=== PATIENT | female | born 1930 | race Caucasian/White ===

== ENCOUNTER → 2017-01-28 | Emergency (ER) | payer OTHER, BC ==
[~2017-01-28] MED LIST: ACETAMINOPHEN 325 MG TABLET (FP) ONE; ACETAMINOPHEN 325 MG TABLET (FP) PO ONE
[2017-01-28 17:17] VITALS: BMI 28.3
--- NOTE | 2017-01-28 17:41 | PDOC ---
History of Present Illness - History of Present Illness Initial Comments: 01/28/17 18:12 The patient is a 86 year old female, with a significant past medical history of Afib (on xarelto), hypertension, and arthritis, who presents to the emergency department brought in by ambulance with pain to her right shoulder and neck s/p mechanical fall today. She states she was putting away ice cream in her kitchen with her daughter when she tripped over her foot and fell onto her right side. She denies hitting her head or losing consciousness. The patient reports the the pain on the right side of her neck is worse than the left but states she has always had some degree of pain to her neck and shoulder due to her arthritis. The patient reports she walks with a rollator at baseline for unsteady gait. She denies any new troubles walking or bearing weight. She denies chest pain, shortness of breath, headache and dizziness. She denies fever, chills, nausea, vomit, diarrhea and constipation. She denies dysuria, frequency, urgency and hematuria. Allergies: penicillins and sulfa drugs <Luh Del Angel - Last Filed: 01/28/17 20:14> <Dee Rojas - Last Filed: 01/28/17 21:14> - General Chief Complaint: Injury Stated Complaint: FALL Time Seen by Provider: 01/28/17 17:12 Past History <Luh Del Angel - Last Filed: 01/28/17 20:14> - Past Medical History Cardiac Disorders: Yes HTN: Yes HIV: Yes - Surgical History Cardiac Surgery: Yes (bypass x 2) - Psycho/Social/Smoking Cessation Hx Anxiety: No Suicidal Ideation: No Smoking History: Never smoked Have you smoked in the past 12 months: No Information on smoking cessation initiated: No Hx Alcohol Use: No Drug/Substance Use Hx: No Substance Use Type: None <Dee Rojas - Last Filed: 01/28/17 21:14> - Past Medical History Allergies/Adverse Reactions: Allergies Allergy/AdvReac Type Severity Reaction Status Date / Time Penicillins Allergy Verified 01/28/17 17:18 Sulfa (Sulfonamide Allergy Verified 01/28/17 17:18 Antibiotics) Home Medications: Ambulatory Orders Amlodipine Besylate [Norvasc -] 5 mg PO DAILY 01/28/17 Brimonidine Tartrate/Timolol [Combigan Eye Drops] 1 drop OU BID 01/28/17 Metoprolol Succinate [Toprol Xl] 0 mg PO DAILY 01/28/17 Pantoprazole Sodium [Protonix] 40 mg PO DAILY 01/28/17 Rivaroxaban [Xarelto -] 15 mg PO DAILY 01/28/17 Valsartan [Diovan] 160 mg PO DAILY 01/28/17 Review of Systems - Review of Systems Able to Perform ROS?: Yes Comments:: 01/28/17 18:12 CONSTITUTIONAL: Absent: fever, chills, diaphoresis, generalized weakness, malaise, loss of appetite HEENT: Absent: rhinorrhea, nasal congestion, throat pain, throat swelling, difficulty swallowing, mouth swelling, ear pain, eye pain, visual Changes CARDIOVASCULAR: Absent: chest pain, syncope, palpitations, irregular heart rate, lightheadedness , peripheral edema RESPIRATORY: Absent: cough, shortness of breath, dyspnea with exertion, orthopnea, wheezing, stridor, hemoptysis GASTROINTESTINAL: Absent: abdominal pain, abdominal distension, nausea, vomiting, diarrhea, constipation, melena, hematochezia GENITOURINARY: Absent: dysuria, frequency, urgency, hesitancy, hematuria, flank pain, genital pain MUSCULOSKELETAL: (+) right shoulder and bilateral neck pain. Absent: joint swelling SKIN: Absent: rash, itching, pallor HEMATOLOGIC/IMMUNOLOGIC: Absent: easy bleeding, easy bruising, lymphadenopathy, frequent infections ENDOCRINE: Absent: unexplained weight gain, unexplained weight loss, heat intolerance, cold intolerance NEUROLOGIC: Absent: headache, focal weakness or paresthesias, dizziness, unsteady gait, seizure, mental status changes, bladder or bowel incontinence PSYCHIATRIC: Absent: anxiety, depression, suicidal or homicidal ideation, hallucinations. <Luh Del Angel - Last Filed: 01/28/17 20:14> *Physical Exam - Vital Signs Last Vital Signs Temp Pulse Resp BP Pulse Ox 97.5 F L 70 18 179/62 100 01/28/17 16:51 01/28/17 16:51 01/28/17 16:51 01/28/17 16:51 01/28/17 16:51 - Physical Exam Comments: 01/28/17 18:14 GENERAL: Well developed, well nourished. Awake and alert. No acute distress. HEENT: Normocephalic, atraumatic. PERRLA, EOMI. No conjunctival pallor. Sclera are non- icteric. Moist mucous membranes. Oropharynx is clear. NECK: Supple. Full ROM. No JVD. Carotid pulses 2+ and symmetric, without bruits. No thyromegaly. No lymphadenopathy. CARDIOVASCULAR: Regular rate and rhythm. No murmurs, rubs, or gallops. Distal pulses are 2+ and symmetric. PULMONARY: No evidence of respiratory distress. Lungs clear to auscultation bilaterally. No wheezing, rales or rhonchi. ABDOMINAL: Soft. Non-tender. Non-distended. No rebound or guarding. No organomegaly. Normoactive bowel sounds. MUSCULOSKELETAL (+) mild ttp starting at right C3. paraspinal and trapezius mildly ttp. Normal range of motion at all joints. No bony deformities. No CVA tenderness. EXTREMITIES: No cyanosis. No clubbing. No edema. No calf tenderness. SKIN: Warm and dry. Normal capillary refill. No rashes. No jaundice. NEUROLOGICAL: Alert, awake, appropriate. Cranial nerves 2-12 intact. Normoreflexic in the upper and lower extremities. Normal speech. Toes are down-going bilaterally. Gait is normal without ataxia. PSYCHIATRIC: Cooperative. Good eye contact. Appropriate mood and affect. <Luh Del Angel - Last Filed: 01/28/17 20:14> - Vital Signs Last Vital Signs Temp Pulse Resp BP Pulse Ox 97.5 F L 70 18 179/62 100 01/28/17 16:51 01/28/17 16:51 01/28/17 16:51 01/28/17 16:51 01/28/17 16:51 <Dee Rojas - Last Filed: 01/28/17 21:14> ED Treatment Course - RADIOLOGY Radiograph Interpretation: 01/28/17 19:50 EXAM: CT cervical spine noncontrast was read by Manpreet Dawson MD at 19 :45 EST IMAGES: 330 EXAM DATE AND TIME: 2017-01-28 18:20:14.0 REASON FOR EXAM: Fall FINDINGS: There is a type II fracture of the odontoid body with mild diastases anteriorly measuring approximately 2 mm although without significant displacement. This is best appreciated on sagittal reformatted images There are no additional fractures visualized There are moderate to severe multilevel degenerative changes Grade 1 anterolisthesis of C3 on C4, C4 on C5, C7 on T1, T1 -T2 and T2 on T3, likely chronic degenerative The prevertebral soft tissues are within normal limits The visualized upper lungs are clear EXAM: CT head noncontrast was read by Manpreet Dawson MD at 19:38 EST FINDINGS: There is no intra or extra-axial hemorrhage or collection. No mass lesion or midline shift. There is mild cortical atrophy. The ventricles are not enlarged Normal mann-white matter differentiation. Areas of decreased attenuation in the periventricular and deep white matter compatible with chronic microvascular ischemic changes. The calvarium is intact. The visualized paranasal sinuses and mastoid air cells are clear. - Medications Given in the ED: ED Medications Discontinued Medications Generic Name Dose Route Start Last Admin Trade Name Freq PRN Reason Stop Dose Admin Acetaminophen 650 mg 01/28/17 17:47 01/28/17 17:57 Tylenol - PO 01/28/17 17:48 650 mg ONCE ONE Administration <Luh Del Angel - Last Filed: 01/28/17 20:14> Medical Decision Making - Critical Care Time Total Critical Care Time (minutes): 60 Critical Care Statement: The care of this patient involved high complexity decision making to prevent further life threatening deterioration of the patient 's condition and/or to evalute & treat vital organ system(s) failure or risk of failure. - Medical Decision Making 01/28/17 20:19 c collar was placed on patient when she arrived 01/28/17 20:23 86 yo female brought in from home after having a mechanical fall in her kitchen. Her daughter was present. Pt has c/o neck pain -pt is axox3,moving all extremities,good hand grasp 5/5 bilaterally -she denies headache,nausea,vomiting PMH atrial fib,HTN PSH TL, cholecystectomy, b/l hip replacement 01/28/17 21:10 ct scan of head NEGATIVE fore any acute intracranial pathology ct scan of cervical spine POSITIVE for TYPE II DENS FRACTURE ,nondisplaced Called [facility] and spoke with neurosurgeon DR ORTIZ who accepted the case -case discussed with the patient and her daughter. -They agreed to TRANSFER for higher level of care (no neurosurgery available tonight at our hospital) -the patient signed the transfer chart <Dee Rojas - Last Filed: 01/28/17 21:14> *DC/Admit/Observation/Transfer - Attestations Scribe Attestion: 01/28/17 18:15 Documentation prepared by Luh Del Angel, acting as medical transcriber for Dee Rojas MD <Luh Del Angel - Last Filed: 01/28/17 20:14> - Transfer to Acute Care Facility Receiving Facility: [facility]. Accepting Physician:: DR ORTIZ neurosurgery <Dee Rojas - Last Filed: 01/28/17 21:14> Diagnosis at time of Disposition: Dens fracture Qualifiers: Encounter type: initial encounter Fracture type: closed Qualified Code(s): S12.100A - Unspecified displaced fracture of second cervical vertebra, initial encounter for closed fracture Fall Qualifiers: Encounter type: initial encounter Qualified Code(s): W19.XXXA - Unspecified fall, initial encounter - Discharge Dispostion Disposition: TRANSFER ACUTE CARE/OTHER HOSP - Referrals Referrals: Micky Miller [Primary Care Provider] -
[2017-01-28 20:55] VITALS: BP 160/78; PULSE 73; TEMP 98.3
== END | disposition short-term general hospital (02) ==
LOC: JER 16:51
DX: S12.121A Other nondisplaced dens fracture, initial encounter for closed fracture (principal); I48.91 Unspecified atrial fibrillation; Z79.01 Long term (current) use of anticoagulants; I10 Essential (primary) hypertension; M12.9 Arthropathy, unspecified; Z21 Asymptomatic human immunodeficiency virus [HIV] infection status; Z95.1 Presence of aortocoronary bypass graft; W01.0XXA Fall on same level from slipping, tripping and stumbling without subsequent striking against object, initial encounter; Y93.89 Activity, other specified; Y92.030 Kitchen in apartment as the place of occurrence of the external cause
CPT/HCPCS: 70450-TC; 72125-TC; 99285-25

== ENCOUNTER 2018-08-13 14:25 | Inpatient (IN) | payer OTHER, BC ==
--- NOTE | 2018-08-13 15:12 | PDOC ---
History of Present Illness - General Chief Complaint: Injury Stated Complaint: FALL/HEAD INJURY Time Seen by Provider: 08/13/18 14:39 History Source: Patient Exam Limitations: No Limitations - History of Present Illness Initial Comments: 08/13/18 15:23 87-year-old female sent over from status post fall. Patient states was trying to get comfortable in the chair when she fell forward striking her forehead on the tiled floor. Patient states had no LOC had no complaints of dizziness or visual changes on the incident. Patient is currently on zaralto, has a defibrillator, and history of hypertension. As per daughter patient has irritation and mild breakdown to her buttocks which causes her to frequently move her position and fell approximately 3 weeks ago secondary to the same requiring her to go to the ER to [facility]. Occurred: reports: just prior to arrival Severity: reports: mild Pain Location: reports: head Method of Injury: Yes: fall Modifying Factors: improves with: None Loss of Consciousness: no loss of consciousness Associated Symptoms (Fall): denies symptoms Past History - Travel Traveled outside of the country in the last 30 days: No - Past Medical History Allergies/Adverse Reactions: Allergies Allergy/AdvReac Type Severity Reaction Status Date / Time strawberry Allergy Severe Hives Verified 08/14/18 14:16 Penicillins Allergy Verified 08/13/18 14:31 Sulfa (Sulfonamide Allergy Verified 08/13/18 14:31 Antibiotics) nut - unspecified AdvReac Severe Difficulty Unverified 08/16/18 11:05 Breathing Home Medications: Ambulatory Orders Furosemide [Lasix] 20 mg PO DAILY 08/13/18 Rivaroxaban [Xarelto -] 20 mg PO DAILY 08/13/18 Valsartan 320 mg PO DAILY 08/13/18 Brimonidine Tartrate/Timolol [Combigan Eye Drops] 5 ml OD BID 08/14/18 Pantoprazole Sodium [Protonix -] 20 mg PO DAILY 08/14/18 Tobramycin Sulf/Dexamethasone [Tobradex] 1 - 2 drop TID 08/14/18 Cardiac Disorders: Yes COPD: No HTN: Yes - Surgical History Cardiac Surgery: Yes (bypass x 2) - Suicide/Smoking/Psychosocial Hx Smoking History: Never smoked Have you smoked in the past 12 months: No Hx Alcohol Use: No Drug/Substance Use Hx: No Substance Use Type: None Patient Lives Alone: No Review of Systems - Review of Systems Able to Perform ROS?: No Constitutional: No: Symptoms Reported HEENTM: No: Symptoms Reported : No: Symptoms Reported Musculoskeletal: No: Symptoms Reported Integumentary: Yes: Bruising, Erythema, Lumps Neurological: No: Symptoms reported, Headache, Dizziness Endocrine: No: Symptoms Reported Hematologic/Lymphatic: Yes: See HPI *Physical Exam - Vital Signs Last Vital Signs Temp Pulse Resp BP Pulse Ox 97.3 F L 80 18 123/79 99 08/13/18 14:31 08/13/18 14:31 08/13/18 14:31 08/13/18 14:31 08/13/18 14:31 - Physical Exam General Appearance: Yes: Nourished, Appropriately Dressed. No: Apparent Distress HEENT: positive: EOMI, JOHN, Pharynx Normal (dry) Neck: positive: Normal Thyroid, Supple. negative: Tender, Decreased range of motion Respiratory/Chest: positive: Lungs Clear, Normal Breath Sounds. negative: Respiratory Distress, Accessory Muscle Use Cardiovascular: positive: Regular Rhythm, Regular Rate. negative: Murmur Gastrointestinal/Abdominal: positive: Soft. negative: Tenderness Extremity: positive: Normal Capillary Refill. negative: Pedal Edema Integumentary: positive: Normal Color, Dry, Warm, Swelling (to upper midforehead ), Ecchymosis (4 cm soft hematoma to parietal area) Neurologic: positive: Motor Strength 5/5 (moving all extremeties actively, FROM noted) Heart Score/ECG Review - ECG Intrepretation Rhythm: Regular Rhythm (rate 60, ventrically paced) ED Treatment Course - LABORATORY CBC & Chemistry Diagram: 08/17/18 07:15 08/16/18 07:30 - RADIOLOGY Radiology Studies Ordered: Category Date Time Status CERVICAL SPINE CT W/O CONTR [CT] Stat CT Scan 08/13/18 14:[address] WITHOUT CONTRAST [CT] Stat CT Scan 08/13/18 14:39 Ordered Medical Decision Making - Medical Decision Making 08/13/18 15:51 Patient status post mechanical fall now with ecchymotic hematoma to mid upper for head. Patient on zaralto. Patient ordered for labs, EKG, urine head and neck CT. 08/13/18 16:14 Laboratory Tests 08/13/18 15:15 PT with INR 16.20 H INR 1.43 H Laboratory Tests 08/13/18 15:15 WBC 8.1 Hgb 14.9 Hct 45.5 H RDW 24.4 H Plt Count 132 L Neutrophils % 72.9 08/13/18 17:[address] negative for acute intracranial pathology. Patient ordered for tetanus since she has not had one in over 6 years. Chemistry pending. Patient was ordered for 500 mL of normal saline since she appears dry and exam and daughter states patient has had decreased fluid intake for the past 2 weeks secondary to recommendations of her primary care doctor due to hyponatremia 08/13/18 17:59 Case discussed with family and understands patient will be admitted for observation with a repeat head CT in the morning 08/13/18 18:18 CT of the cervical spine shows a type II odontoid fracture with minimal to mild posterior displacement. It is uncertain whether this fracture is acute or chronic in nature on the basis of this exam. As per daughter, the patient has had 2 falls prior to today in the past 6 weeks. Patient was placed in cervical collar. 08/13/18 18:19 Laboratory Tests 08/13/18 16:50 Sodium 125 L Potassium 4.8 Chloride 93 L Carbon Dioxide 21 Anion Gap 11 BUN 29 H Creatinine 0.9 Creat Clearance w eGFR 59.37 Random Glucose 108 H Calcium 8.5 Total Bilirubin 1.5 H AST 46 H ALT 41 Alkaline Phosphatase 72 Total Protein 5.9 L Albumin 3.2 L *DC/Admit/Observation/Transfer Diagnosis at time of Disposition: Closed head injury, Anticoagulated, Odontoid fracture, Hyponatremia - Discharge Dispostion Decision to Admit order: Yes - Referrals - Patient Instructions - Post Discharge Activity
[2018-08-13 15:46] LABS: BASO % 0.7 % (0-2.0); EOS % 0.5 % (0-4.5); HEMATOCRIT 45.5 % (32.4-45.2); HEMOGLOBIN 14.9 GM/dL (10.7-15.3); MCH 29.7 pg (25.7-33.7); MCHC 32.7 g/dl (32.0-36.0); MEAN CELL VOLUME 90.7 fl (80-96); MEAN PLT VOLUME 8.4 fl (7.5-11.1); MONO % 8.9 % (3.8-10.2); NEUT % 72.9 % (42.8-82.8); PLATELET COUNT 132 K/MM3 (134-434); RBC 5.01 M/mm3 (3.60-5.2); RDW 24.4 % (11.6-15.6); WHITE BLOOD COUNT 8.1 K/mm3 (4.0-10.0)
[2018-08-13 15:49] LABS: INR 1.43 (0.83-1.09); PROTHROMBIN TIME (PATIENT) 16.2 SEC (9.7-13.0)
[2018-08-13] MEDS ORDERED: DIPHTH,PERTUSS(ACELL),TET 0.5 ML DISP.SYRIN IM ONE (17:47)
[2018-08-13] MEDS ORDERED: SODIUM CHLORIDE 500 ML IV STA (17:48)
[2018-08-13 17:56] LABS: ALBUMIN 3.2 g/dl (3.4-5.0); ANION GAP 11 MMOL/L (8-16); BILIRUBIN,TOTAL 1.5 mg/dL (0.2-1); BLOOD UREA NITROGEN 29 mg/dL (7-18); CALCIUM 8.5 mg/dL (8.5-10.1); CHLORIDE 93 mmol/L (98-107); CO2 21 mmol/L (21-32); CREATININE 0.9 mg/dL (0.55-1.3); GLUCOSE,RANDOM 108 mg/dL (74-106); SGPT/ALT 41 U/L (13-61); SODIUM 125 mmol/L (136-145); TOT PROT 5.9 g/dl (6.4-8.2)
[2018-08-13 17:57] LABS: ALK PHOS 72 U/L (45-117)
[2018-08-13 18:00] LABS: POTASSIUM 4.8 mmol/L (3.5-5.1); SGOT/AST 46 U/L (15-37)
--- NOTE | 2018-08-13 19:23 | HP ---
CHIEF COMPLAINT: Fall PCP: Dr. Miller Manager Diabetes: Dr. Asad De Los Santos HISTORY OF PRESENT ILLNESS: Patient is an 87 year old female with a PMHx of HTN, Atrial Fibrillation (On Xarelto), glaucoma, hyponatremia, herpes opthalmicus, CAD S/P 2 vessel bypass and AICD/Pacemaker placement (April 2018) who presented today s/p mechanical fall. According to patient, she was sitting in her chair adjusting herself and then she suddenly fell to the ground, hitting the front of her head. Reports it happened in the morning, however, her kids report she fell this afternoon and her aid came into the room within 30 minutes and found her on the floor, which prompted her to call EMS. Patient states she remembered the whole event and denies any loss of consciousness, shortness of breath, chest pain, palpitations , dizziness before, during, or after the fall. According to her son, who is a physician (hospitalist) at [employer], patient has fallen three times in the last 6 weeks and has had an 8 pound weight loss in the last 4 weeks due to poor oral intake and loss of appetite. Patiently recently had AICD and pacemaker placed April 2018 after she was found to have an EF <25% and since then her son reports she's had decreased mental acuity, worsening gait, with loss of appetite and anorexia. They also report that patient has irritation when sitting down due to breakdowns of the buttock area from wearing diapers and sitting for long periods of time. Otherwise, patient denies any fever, chills, nausea, vomiting, abdominal pain, chest pain, palpitations, shortness of breath, acute vision changes, headaches, dizziness, lightheadedness, loss of consciousness. ER course was notable for: (1) Head CT (2) Cervical CT (3) Recent Travel: Denies PAST MEDICAL HISTORY: HTN, Atrial Fibrillation (On Xarelto), glaucoma, hyponatremia, herpes opthalmicus, CAD S/P 2 vessel bypass and AICD/Pacemaker placement (April 2018) PAST SURGICAL HISTORY: 2 vessel bypass (1998), AICD/Pacemaker (April 2018), Left hip placement (1989), Cholecystectomy Social History: Lives alone and has an aid. 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 Smoking:Denies Alcohol: Denies Drugs: Denies Allergies Penicillins Allergy (Verified 08/13/18 14:31) HIVES Sulfa (Sulfonamide Antibiotics) Allergy (Verified 08/13/18 14:31) HIVES HOME MEDICATIONS: Home Medications Medication Instructions Recorded Amlodipine Besylate [Norvasc -] 5 mg PO DAILY 01/28/17 Brimonidine Tartrate/Timolol 1 drop OU BID 01/28/17 [Combigan Eye Drops] Metoprolol Succinate [Toprol Xl] 0 mg PO DAILY 01/28/17 Pantoprazole Sodium [Protonix] 40 mg PO DAILY 01/28/17 Rivaroxaban [Xarelto -] 15 mg PO DAILY 01/28/17 Valsartan [Diovan] 160 mg PO DAILY 01/28/17 REVIEW OF SYSTEMS CONSTITUTIONAL: Absent: fever, chills, diaphoresis, generalized weakness, malaise, loss of appetite, weight change HEENT: Absent: rhinorrhea, nasal congestion, throat pain, throat swelling, difficulty swallowing, mouth swelling, ear pain, eye pain, visual changes CARDIOVASCULAR: Absent: chest pain, syncope, palpitations, irregular heart rate, lightheadedness , peripheral edema RESPIRATORY: Absent: cough, shortness of breath, dyspnea with exertion, orthopnea, wheezing, stridor, hemoptysis GASTROINTESTINAL: Absent: abdominal pain, abdominal distension, nausea, vomiting, diarrhea, constipation, melena, hematochezia GENITOURINARY: Absent: dysuria, frequency, urgency, hesitancy, hematuria, flank pain, genital pain MUSCULOSKELETAL: Absent: myalgia, arthralgia, joint swelling, back pain, neck pain SKIN: Absent: rash, itching, pallor HEMATOLOGIC/IMMUNOLOGIC: Absent: easy bleeding, easy bruising, lymphadenopathy, frequent infections ENDOCRINE: Absent: unexplained weight gain, unexplained weight loss, heat intolerance, cold intolerance NEUROLOGIC: Frequent falls Absent: headache, focal weakness or paresthesias, dizziness, unsteady gait, seizure, mental status changes, bladder or bowel incontinence PSYCHIATRIC: Absent: anxiety, depression, suicidal or homicidal ideation, hallucinations. PHYSICAL EXAMINATION Vital Signs - 24 hr 08/13/18 14:31 Temperature 97.3 F L Pulse Rate 80 Respiratory 18 Rate Blood Pressure 123/79 O2 Sat by Pulse 99 Oximetry (%) GENERAL: Awake, alert, and fully oriented, in no acute distress. HEAD: 4cm hematoma in the parietal region with an abrasion of the mid forehead, EYES: Pupils equal, round and reactive to light, extraocular movements intact, sclera anicteric, conjunctiva clear. No lid lag. (-) [place] eyes EARS, NOSE, THROAT: Oropharynx clear without exudates. Dry mucous membranes. (- ) battles sign , no hemotympanum NECK: Able to move neck right and left without pain or tenderness, (-) lymphadenopathy, JVD, or masses. LUNGS: Breath sounds equal, clear to auscultation bilaterally. No wheezes, and no crackles. No accessory muscle use. HEART: Regular rate and rhythm, 2/6 lukasz murmur ABDOMEN: Soft, nontender, not distended, normoactive bowel sounds, no guarding, no rebound, no masses. MUSCULOSKELETAL: Normal range of motion at all joints. No bony deformities or tenderness. No CVA tenderness. UPPER EXTREMITIES: No peripheral edema. LOWER EXTREMITIES: 2+ pitting edema bilaterally BUTTOCK: Skin break down with multiple closed ulcerations/lesions with no drainage NEUROLOGICAL: Cranial nerves II-XII intact. Normal speech. Motor strength 5/5 bilaterally with sensory intact PSYCHIATRIC: Cooperative. Good eye contact. Appropriate mood and affect. Laboratory Results - last 24 hr CBC, BMP 08/13/18 20:24 08/13/18 16:50 08/13/18 08/13/18 08/13/18 15:15 16:50 16:50 INR 1.43 H Total Bilirubin 1.5 H AST 46 H ALT 41 Alkaline Phosphatase 72 Creatine Kinase 67 Total Protein 5.9 L Albumin 3.2 L IMAGES: Head CT (08/13/18): No Acute pathology Cervical CT (08/13/18): In comparison to a 2017 CT study interval development of a type II odontoid fracture is noted with minimal to mild posterior displacement. It is uncertain whether this fracture is acute or chronic in nature on the basis of this exam. ASSESSMENT/PLAN: Patient is an 87 year old female who presented for S/P mechanical fall on Xarelto. Patient found to have hyponatremia and admitted for further monitoring and management. S/P Mechanical Fall on Xarelto -Possibly from hyponatremia and CHF causing her usteady gait -Head CT negative. Will repeat one in the morning -Hold Xarelto for now -Will order U/A -Fall Risk precautions -Neurochecks -Neurology consult placed Type II odontoid fracture -Secondary from fall. Possibly chronic -Patient denies any pain with no limited ROM of the neck -Possible ortho spine consult Moderate Chronic Hyponatremia -Likely from poor oral intake with possible CHF -Patient was diagnosed with this several weeks ago and was due for follow up -Restrict free water -TSH ordered -Urine and serum osm ordered -Repeat BMP in the morning Stage I Pressure Injury -Santyl ordered -Will need wound care follow up as outpatient Systolic CHF with Bilateral Leg edema -S/P AICD/biventircular pacemaker April 2018 -Wit signs of possible hepatic congestion due to elevated bili and AST -Will continue home medication Lasix -Reports she is on Losartan, will resume once confirmed -Leg elevation -Cardiology consult placed CAD s/p CABG -On no ASA -Follows cardiology -Cardiology consult placed Atrial Fibrillation -Rate controlled -Will hold Xarelto until next Head CT HTN -Controlled -Will need to confirm home medications Glaucoma -Continue home eye drops Herpes Opthalmicus -Continue home medication Acyclovir 400mg BID -Monitor BMP F/E/N -On no fluids. Encourage PO and restrict free water -Hyponatremia -Regular diet with limited sodium intake Prophylaxis -SCD's for DVT. Moderate risk -No GI required Disposition -DNI -Will need repeat CT in the morning Visit type - Emergency Visit Emergency Visit: Yes ED Registration Date: 08/13/18 Care time: The patient presented to the Emergency Department on the above date and was hospitalized for further evaluation of their emergent condition. - New Patient This patient is new to me today: Yes Date on this admission: 08/13/18 - Critical Care Critical Care patient: No Hospitalist Screening - Colonoscopy Questionnaire Colonoscopy Questionnaire: Colonoscopy Questionnaire - Patient: 50 - 75 years old and never had a screening colonoscopy: No History of colon or rectal polyps, or CA: No History of IBD, Crohn's disease or UC: No History of abdominal radiation therapy as a child: No - Relative: 1 with colon or rectal CA, or polyps at age 60 or younger: No Colon or rectal CA diagnosed at age 45 or younger: No Multiple relatives with colon or rectal CA: No - Outcome: Screening Result: Negative Screen
--- NOTE | 2018-08-13 19:41 | PN ---
Teaching Attending Note Name of Resident: Lisa Quintana ATTENDING PHYSICIAN STATEMENT I saw and evaluated the patient. I reviewed the resident's note and discussed the case with the resident. I agree with the resident's findings and plan as documented. SUBJECTIVE: Patient is an 87 year old woman with a past history of Afib (on xarelto), hypertension, bilateral hip replacement, ?CABG, cholecystectomy, CHF (LVEF 25%?) , and arthritis, presenting after a fall. Patient states was trying to get comfortable in the chair when she fell forward striking her forehead on the tiled floor. Patient states had no LOC had no complaints of dizziness or visual changes on the incident. Patient has a pacemaker/AICD. As per daughter patient has irritation and mild breakdown to her buttocks which causes her to frequently move her position and fell approximately 3 weeks ago secondary to the same requiring her to go to the ER to [facility]. OBJECTIVE: Alert Vital Signs Period Temp Pulse Resp BP Sys/Hall Pulse Ox Last 24 Hr 97.3 F 80 18 123/79 99 HEENT: No Jaundice, eye redness or discharge, PERRLA, EOMI. Forehead abrasion and a hematoma in the parietal scalp area. External ears are normal and hearing is grossly intact. No nasal discharge. Neck: Supple, nontender. No palpable adenopathy or thyromegaly. No JVD Chest: Good effort. Clear to auscultation and percussion. Heart: Regular. No S3 or rub; 2/6 TIP. Abdomen: Not distended, soft, nontender and no HSM. No rebound or guarding. Normoactive bowel sounds. Ext: Peripheral pulses intact. Leg edema. Skin: Warm and dry. No petechiae, rash or ecchymosis. Stage 1 buttocks decubitus ulcers. Neuro: Alert. Oriented x3. CN 2-12 grossly intact. Sensation grossly intact in all four extremities and DTR are symmetric. Home Medications Medication Instructions Recorded Amlodipine Besylate [Norvasc -] 5 mg PO DAILY 01/28/17 Brimonidine Tartrate/Timolol 1 drop OU BID 01/28/17 [Combigan Eye Drops] Metoprolol Succinate [Toprol Xl] 0 mg PO DAILY 01/28/17 Pantoprazole Sodium [Protonix] 40 mg PO DAILY 01/28/17 Rivaroxaban [Xarelto -] 15 mg PO DAILY 01/28/17 Valsartan [Diovan] 160 mg PO DAILY 01/28/17 Abnormal Lab Results 08/13/18 08/13/18 08/13/18 15:15 15:15 16:50 Hct 45.5 H RDW 24.4 H Plt Count 132 L PT with INR 16.20 H INR 1.43 H Sodium 125 L Chloride 93 L BUN 29 H Random Glucose 108 H Total Bilirubin 1.5 H AST 46 H Total Protein 5.9 L Albumin 3.2 L ASSESSMENT AND PLAN: 1. Fall - Excessive diuresis, debility associated with CHF and hyponatremia may all be contributing to recent falls and gait instability. Head CT is unrevealing but C spine CT showed Type II odontoid fracture. Consult neurology and Ortho. Do neurochecks, implement fall precautions, hold xarelto, repeat head CT tomorrow am, dc amlodipine in view of edema, provide a balanced diet with supplements, consult chlorine cell tender, PT and preforming machine operator. Elevate legs at night , and use santyl to dress buttock decubitus ulcer. Elevated LFTs may be due to hepatic congestion from CHF - if it gets worse will get a RUQ sonogram. Monitor scalp hematoma. 2. Hyponatremia - CHF and poor solute intake are likely causes. Limit free water intake and provide a balance diet. Get urine and plasma osmolarity, urine sodium and check TFT. Consult nephrology 3. Afib - Now in sinus with paced beats. Cardiology evaluation to address the risk/benefit of AC in view of recent falls. 4. DVT prophylaxis - On Xarelto 5. Advance directives - Full code
[2018-08-13 20:33] LABS: BASO % 0.8 % (0-2.0); EOS % 0.2 % (0-4.5); HEMATOCRIT 44.3 % (32.4-45.2); HEMOGLOBIN 14.6 GM/dL (10.7-15.3); LYMPH % 20.4 % (8-40); MCH 29.9 pg (25.7-33.7); MCHC 32.8 g/dl (32.0-36.0); MEAN CELL VOLUME 91.1 fl (80-96); MONO % 9.3 % (3.8-10.2); NEUT % 69.3 % (42.8-82.8); PLATELET COUNT 140 K/MM3 (134-434); RBC 4.86 M/mm3 (3.60-5.2); RDW 24.4 % (11.6-15.6)
[2018-08-13 20:36] LABS: ADD RBC MORPHOLOGY YES
[2018-08-13 22:06] LABS: ANISOCYTOSIS 2+; PLATELET ESTIMATE DECREASED
--- NOTE | 2018-08-13 22:14 | CON.CARD ---
Consult Consult Specialty:: Cardiology - History of Present Illness History of Present Illness: 87-year-old female sent over from status post fall. Patient states was trying to get comfortable in the chair when she fell forward striking her forehead on the tiled floor. Patient states had no LOC had no complaints of dizziness or visual changes on the incident. Patient is currently on xaralto, has a defibrillator, and history of hypertension. As per daughter patient has irritation and mild breakdown to her buttocks which causes her to frequently move her position and fell approximately 3 weeks ago secondary to the same requiring her to go to the ER to [facility]. nl ef until2017 when PPM was placed for pause. 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 - History Source History Provided By: Patient, Medical Record - Past Medical History Cardio/Vascular: Yes: AFIB, CAD, CHF - Past Surgical History Past Surgical History: Yes: CABG (1997 dr AJ Fajardo V) - Alcohol/Substance Use Hx Alcohol Use: No - Smoking History Smoking history: Never smoked Have you smoked in the past 12 months: No Home Medications - Allergies Allergies/Adverse Reactions: Allergies Allergy/AdvReac Type Severity Reaction Status Date / Time Penicillins Allergy Verified 08/13/18 14:31 Sulfa (Sulfonamide Allergy Verified 08/13/18 14:31 Antibiotics) - Home Medications Home Medications: Ambulatory Orders Furosemide [Lasix] 20 mg PO DAILY 08/13/18 Rivaroxaban [Xarelto -] 20 mg PO DAILY 08/13/18 Valsartan 320 mg PO DAILY 08/13/18 Brimonidine Tartrate/Timolol [Combigan Eye Drops] 5 ml OD BID 08/14/18 Pantoprazole Sodium [Protonix -] 20 mg PO DAILY 08/14/18 Tobramycin Sulf/Dexamethasone [Tobradex] 1 - 2 drop TID 08/14/18 Review of Systems - Review of Systems Constitutional: reports: No Symptoms Eyes: reports: No Symptoms HENT: reports: No Symptoms Neck: reports: No Symptoms Cardiovascular: reports: Edema Respiratory: reports: No Symptoms Gastrointestinal: reports: No Symptoms Genitourinary: reports: No Symptoms Breasts: reports: No Symptoms Reported Musculoskeletal: reports: No Symptoms Integumentary: reports: No Symptoms Neurological: reports: No Symptoms Endocrine: reports: No Symptoms Hematology/Lymphatic: reports: No Symptoms Psychiatric: reports: No Symptoms Vital Signs: Vital Signs Temperature 99.2 F 08/13/18 19:58 Pulse Rate 58 L 08/13/18 19:58 Respiratory Rate 18 08/13/18 19:58 Blood Pressure 128/74 08/13/18 19:58 O2 Sat by Pulse Oximetry (%) 97 08/13/18 19:58 Constitutional: Yes: Well Nourished, No Distress, Calm Eyes: Yes: WNL, Conjunctiva Clear, EOM Intact HENT: Yes: WNL, Atraumatic, Normocephalic Neck: Yes: WNL, Supple, Trachea Midline Respiratory: Yes: WNL, Regular, CTA Bilaterally Gastrointestinal: Yes: WNL, Normal Bowel Sounds Renal/: Yes: WNL Cardiovascular: Yes: WNL, Regular Rate and Rhythm Musculoskeletal: Yes: WNL Extremities: Yes: WNL Edema: Yes Edema: LLE: 1+, RLE: 1+ Integumentary: Yes: WNL Neurological: Yes: WNL, Alert, Oriented ...Motor Strength: WNL Psychiatric: Yes: WNL, Alert, Oriented - Other Data Labs, Other Data: CBC, BMP 08/13/18 20:24 08/13/18 16:50 INR, PTT INR 1.43 (0.83-1.09) H 08/13/18 15:15 Troponin, BNP 08/13/18 08/13/18 15:15 16:50 Troponin I Cancelled 0.03 Troponin, BNP 08/13/18 08/13/18 15:15 16:50 Troponin I Cancelled 0.03 Imaging - Results Chest X-ray: Image Reviewed (neg) EKG: Image Reviewed (bivi pacing) Problem List - Problems (1) Anticoagulated Code(s): Z79.01 - SHELTER (CURRENT) USE OF ANTICOAGULANTS (2) Closed head injury Code(s): S09.90XA - UNSPECIFIED INJURY OF HEAD, INITIAL ENCOUNTER (3) Dens fracture Code(s): S12.100A - UNSP DISP FX OF SECOND CERVICAL VERTEBRA, INIT FOR CLOS FX (4) Hyponatremia Code(s): E87.1 - HYPO-OSMOLALITY AND HYPONATREMIA (5) Fall Code(s): W19.XXXA - UNSPECIFIED FALL, INITIAL ENCOUNTER Qualifiers: Encounter type: initial encounter Qualified Code(s): W19.XXXA - Unspecified fall, initial encounter Assessment/Plan s/p fall/syncopy chf ashd s/p cabg AF Bivi paced hyponatremia Plan echo ICD interrogation iv lasix neuro and nephrology f/u appreciated
[2018-08-13] MEDS: COLLAGENASE CLOSTRIDIUM HIST. 30 GRAMS TUBE TP SCH (23:24)
[2018-08-14] MEDS: TOBRA 0.3%/DEXAMETH 0.1% OPHTHALMIC SUSP 2.5 ML BTL OD SCH ×3 (06:31→21:51)
[2018-08-14] MEDS ORDERED: PT OWN MED DRAWER 7, Y5N ONE ×2 (07:00→20:21)
[2018-08-14 07:45] LABS: BASO % 0.8 % (0-2.0); EOS % 0.3 % (0-4.5); HEMATOCRIT 44.7 % (32.4-45.2); HEMOGLOBIN 14.5 GM/dL (10.7-15.3); LYMPH % 24.5 % (8-40); MCH 29.7 pg (25.7-33.7); MCHC 32.5 g/dl (32.0-36.0); MEAN CELL VOLUME 91.2 fl (80-96); MEAN PLT VOLUME 8.6 fl (7.5-11.1); MONO % 10.8 % (3.8-10.2); NEUT % 63.6 % (42.8-82.8); PLATELET COUNT 126 K/MM3 (134-434); RDW 24.3 % (11.6-15.6); WHITE BLOOD COUNT 7.2 K/mm3 (4.0-10.0)
--- NOTE | 2018-08-14 08:18 | CON.NEURO ---
Consult Consult Specialty:: [facility] Reason for Consultation:: Falls - History of Present Illness History of Present Illness: this is a very pleasant 87-year-old right-handed woman with present medical history significant for HTN, Atrial Fibrillation (On Xarelto), glaucoma, hyponatremia, herpes opthalmicus, CAD S/P 2 vessel bypass and AICD/Pacemaker placement (April 2018) presented with increasing difficulty with walking. Patient is a very good historian she claims that she has had been having difficulty with back pain patient with feeling of the legs will give out under her. Patient denies any loss of consciousness no chest pain no unilaterality of the pain. Patient with mild urinary urgency with no incontinence. Patient denies any history of head trauma. In the emergency room CAT scan of the head and CAT scan of the cervical spine were done. Patient was also evaluated by the shipping helper. Since admission to the floor patient with no altered sensorium. - History Source History Provided By: Patient, Medical Record - Past Medical History ...: No - Alcohol/Substance Use Hx Alcohol Use: No - Smoking History Smoking history: Never smoked Have you smoked in the past 12 months: No Home Medications - Allergies Allergies/Adverse Reactions: Allergies Allergy/AdvReac Type Severity Reaction Status Date / Time Penicillins Allergy Verified 08/13/18 14:31 Sulfa (Sulfonamide Allergy Verified 08/13/18 14:31 Antibiotics) - Home Medications Home Medications: Ambulatory Orders Furosemide [Lasix] 20 mg PO DAILY 08/13/18 Rivaroxaban [Xarelto -] 20 mg PO DAILY 08/13/18 Valsartan 320 mg PO DAILY 08/13/18 Brimonidine Tartrate/Timolol [Combigan Eye Drops] 5 ml OD BID 08/14/18 Pantoprazole Sodium [Protonix -] 20 mg PO DAILY 08/14/18 Tobramycin Sulf/Dexamethasone [Tobradex] 1 - 2 drop TID 08/14/18 Review of Systems - Review of Systems Neurological: reports: Headache, Numbness, Parasthesia, Unsteady Gait Physical Exam-Neuro Vital Signs: Vital Signs Temperature 98 F 08/14/18 06:58 Pulse Rate 61 08/14/18 06:58 Respiratory Rate 18 08/14/18 06:58 Blood Pressure 126/68 08/14/18 06:58 O2 Sat by Pulse Oximetry (%) 97 08/14/18 05:02 Constitutional: Yes: Well Nourished Neck: Yes: WNL Cardiovascular: Yes: WNL Labs: CBC, BMP 08/14/18 06:30 INR, PTT INR 1.43 (0.83-1.09) H 08/13/18 15:15 - Neuro Exam Level Of Consciousness: Yes: Oriented to Person, Oriented to Place, Oriented to Time Eyes: Yes: PERRLA Speech: WNL Dominant Hand: Right Cranial Nerves II-XII Intact: Yes Gag: Present DTR's: 1+ Left Bicep, 1+ Right Bicep, 1+ Left Brachioradialis, 1+ Right Brachioradialis Response to light touch: Normal Response to pain prick: Normal Response to temperature: Normal Response to vibration: Normal Motor Strength: 3/5: Left Arm, Right Arm, Left Leg, Right Leg Gait: Deferred Imaging - Results X-ray: Image Reviewed Cat Scan: Image Reviewed Problem List - Problems (1) Fall Assessment/Plan: gait dysfunction multifactorial Questionable spinal stenosis Lumbar radiculopathy Rule out spinal fracture 1. Agree to your plan to admit and monitor. 2. Fall precautions. 3. CAT scan of the lumbosacral spine with no contrast. 4. Tylenol when necessary pain. 5. Lidoderm patches on the back. Code(s): W19.XXXA - UNSPECIFIED FALL, INITIAL ENCOUNTER Qualifiers: Encounter type: initial encounter Qualified Code(s): W19.XXXA - Unspecified fall, initial encounter
[2018-08-14 08:27] LABS: CHLORIDE 91 mmol/L (98-107); POTASSIUM 4.5 mmol/L (3.5-5.1); SODIUM 125 mmol/L (136-145)
[2018-08-14 08:59] LABS: ALBUMIN 3.2 g/dl (3.4-5.0); ALK PHOS 68 U/L (45-117); ANION GAP 12 MMOL/L (8-16); BILIRUBIN,TOTAL 1.9 mg/dL (0.2-1); BLOOD UREA NITROGEN 26 mg/dL (7-18); CALCIUM 8.6 mg/dL (8.5-10.1); CO2 22 mmol/L (21-32); CREATININE 0.8 mg/dL (0.55-1.3); GLUCOSE,RANDOM 86 mg/dL (74-106); SGOT/AST 39 U/L (15-37); SGPT/ALT 41 U/L (13-61); TOT PROT 5.7 g/dl (6.4-8.2)
[2018-08-14] MEDS ORDERED: FUROSEMIDE 20 MG TABLET (FP) PO SCH (10:00)
[2018-08-14] MEDS ORDERED: ACETAMINOPHEN 500 MG TABLET (FP) PO ONE (10:20)
[2018-08-14] MEDS: ACYCLOVIR 400 MG TABLET PO SCH ×2 (10:40→21:55)
[2018-08-14] MEDS: VALSARTAN 160 MG TABLET (UD) PO SCH (10:41)
[2018-08-14] MEDS: RIVAROXABAN 20 MG TABLET PO SCH (10:42)
[2018-08-14] MEDS: BRIMONIDINE TARTRATE 0.2% OPHTHALMIC 5 ML BOTTLE OU SCH ×2 (10:42→21:54)
[2018-08-14] MEDS: TIMOLOL 0.5% OPHTHALMIC SOL 5 ML BOTTLE OU SCH ×2 (10:43→21:54)
--- NOTE | 2018-08-14 10:51 | EKG ---
Test Reason : Blood Pressure : / mmHG Vent. Rate : 060 BPM Atrial Rate : 056 BPM P-R Int : 000 ms QRS Dur : 200 ms QT Int : 540 ms P-R-T Axes : 000 -79 110 degrees QTc Int : 540 ms Suspect unspecified pacemaker failure Ventricular-paced rhythm ABNORMAL ECG NO PREVIOUS ECGS AVAILABLE Confirmed by ADENIKE KASPER, KIRTI ([id number]) on 08/14/2018 10:50:36 AM Referred By: Confirmed By:KIRTI JEONG MD
--- NOTE | 2018-08-14 11:44 | CONSULT ---
Consult Consult Specialty:: Nephrology Reason for Consultation:: hyponatremia - History of Present Illness Chief Complaint: s/p fall History of Present Illness: Pt is an 87 year old female with pmhx of hyponatremia, CHF,a-fib, HTN, CAD, herpes opthalmicus, CAD with stents, AICD, and glaucoma who presents to the ER after a fall. She was adjusting herself in the chair when she fell. There was no LOC. She was found to be hyponatremic and I was called to evaluate her. She does have history of hyponatremia. She says she has not seen a coil winding supervisor. She tried to drink 4 glasses of water per day. She has significant CHF. She is on 20 mg of lasix daily. She denies chest pain or palpitations. I did call her her son for history. - History Source History Provided By: Patient, Medical Record - Past Medical History Cardio/Vascular: Yes: AFIB, CAD, CHF, HTN Renal/: Yes: Other (hyponatremia) ...: No - Past Surgical History Past Surgical History: Yes: AICD, Permanent Pacemaker Additional Surgical History: hip replacement - Alcohol/Substance Use Hx Alcohol Use: No - Smoking History Smoking history: Never smoked Have you smoked in the past 12 months: No Home Medications - Allergies Allergies/Adverse Reactions: Allergies Allergy/AdvReac Type Severity Reaction Status Date / Time Penicillins Allergy Verified 08/13/18 14:31 Sulfa (Sulfonamide Allergy Verified 08/13/18 14:31 Antibiotics) - Home Medications Home Medications: Ambulatory Orders Furosemide [Lasix] 20 mg PO DAILY 08/13/18 Rivaroxaban [Xarelto -] 20 mg PO DAILY 08/13/18 Valsartan 320 mg PO DAILY 08/13/18 Brimonidine Tartrate/Timolol [Combigan Eye Drops] 5 ml OD BID 08/14/18 Pantoprazole Sodium [Protonix -] 20 mg PO DAILY 08/14/18 Tobramycin Sulf/Dexamethasone [Tobradex] 1 - 2 drop TID 08/14/18 Family Disease History - Family Disease History Family History: Denies Review of Systems - Review of Systems Constitutional: reports: Malaise Eyes: reports: No Symptoms HENT: reports: No Symptoms Neck: reports: Other (neck pain) Cardiovascular: reports: Edema Respiratory: reports: No Symptoms Genitourinary: reports: No Symptoms Musculoskeletal: reports: Back Pain, Muscle Weakness Neurological: reports: No Symptoms Endocrine: reports: No Symptoms Hematology/Lymphatic: reports: No Symptoms Psychiatric: reports: No Symptoms Physical Exam Vital Signs: Vital Signs Temperature 98 F 08/14/18 06:58 Pulse Rate 61 08/14/18 06:58 Respiratory Rate 18 08/14/18 06:58 Blood Pressure 126/68 08/14/18 06:58 O2 Sat by Pulse Oximetry (%) 97 08/14/18 05:02 Constitutional: Yes: Calm Eyes: Yes: Conjunctiva Clear HENT: Yes: Atraumatic Neck: Yes: Supple Cardiovascular: Yes: S1, S2 Respiratory: Yes: CTA Bilaterally Gastrointestinal: Yes: Soft Renal/: Yes: WNL Musculoskeletal: Yes: Muscle Weakness Edema: Yes Edema: LLE: 2+, RLE: 2+ Neurological: Yes: Oriented Psychiatric: Yes: Oriented Labs: CBC, BMP 08/14/18 06:30 08/14/18 06:30 Laboratory Tests 08/13/18 08/13/18 08/13/18 15:15 16:50 16:50 WBC 8.1 Sodium 125 L BUN Creatinine Serum Osmolality 297 TSH 3.31 08/13/18 08/14/18 08/14/18 20:24 06:30 06:30 WBC 8.0 7.2 Sodium 125 L BUN 26 H Creatinine 0.8 Serum Osmolality TSH 08/14/18 06:30 WBC Sodium BUN Creatinine Serum Osmolality 260 L TSH Imaging - Results Chest X-ray: Report Reviewed Problem List - Problems (1) CAD (coronary artery disease) Code(s): I25.10 - ATHSCL HEART DISEASE OF [place] CORONARY ARTERY W/O ANG PCTRS (2) CHF (congestive heart failure) Code(s): I50.9 - HEART FAILURE, UNSPECIFIED (3) Hyponatremia Code(s): E87.1 - HYPO-OSMOLALITY AND HYPONATREMIA (4) Fall Code(s): W19.XXXA - UNSPECIFIED FALL, INITIAL ENCOUNTER Qualifiers: Encounter type: initial encounter Qualified Code(s): W19.XXXA - Unspecified fall, initial encounter Assessment/Plan Current Medications Generic Name Dose Route Start Last Admin Trade Name Freq PRN Reason Stop Dose Admin Acyclovir 400 mg 08/14/18 10:00 08/14/18 10:40 Zovirax - PO Not Given BID KATHARINA Brimonidine Tartrate 1 drop 08/14/18 10:00 08/14/18 10:42 Alphagan 0.2% - OU 1 drop BID KATHARINA Administration Collagenase 1 applic 08/13/18 20:45 08/13/18 23:24 Santyl - TP 1 applic DAILY KATHARINA Administration Protocol Cyclobenzaprine HCl 5 mg 08/14/18 22:00 Flexeril - PO BID KATHARINA Furosemide 20 mg 08/14/18 10:00 08/14/18 10:42 Lasix - PO 20 mg DAILY KATHARINA Administration Lidocaine 1 patch 08/15/18 10:00 Lidoderm Patch - TP DAILY KATHARINA Miscellaneous 1 each 08/15/18 22:00 Lidoderm Patch Removal MC DAILY@2200 KATHARINA Rivaroxaban 20 mg 08/14/18 10:00 08/14/18 10:42 Xarelto - PO 20 mg DAILY KATHARINA Administration Timolol Maleate 1 drop 08/14/18 10:00 08/14/18 10:43 Timoptic 0.5% OU 1 drop BID KATHARINA Administration Tobramycin/Dexamethasone 1 drop 08/14/18 06:00 08/14/18 06:31 Tobradex Ophthalmic Suspension - OD 1 drop TID KATHARINA Administration Valsartan 320 mg 08/14/18 10:00 08/14/18 10:41 Diovan - PO 320 mg DAILY KATHARINA Administration Impression 1. hyponatremia 2. CHF 3. CAD 4. s/p fall 5. a-fib 6. HTN Plan - check urine sodium - check urine osm - repeat serum osm as there is a discrepancy in values - called son who is a physicial and discussed plan - tsh normal - check cortisol - repeat labs in am - restrict free water to 800 cc - recommend cardiology eval - she was discharged from hospital last admission with a sodium of 126 - fall precautions - will give another 20 mg of lasix - will give a dose sodium - will follow Dr Serrano
--- NOTE | 2018-08-14 12:08 | PN ---
Progress Note, Physician History of Present Illness: 87-year-old female sent over from status post fall. Patient states was trying to get comfortable in the chair when she fell forward striking her forehead on the tiled floor. Patient states had no LOC had no complaints of dizziness or visual changes on the incident. Patient is currently on xaralto, has a defibrillator, and history of hypertension. As per daughter patient has irritation and mild breakdown to her buttocks which causes her to frequently move her position and fell approximately 3 weeks ago secondary to the same requiring her to go to the ER to [facility]. nl ef until2017 when PPM was placed for pause. 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 - Current Medication List Current Medications: Active Medications Acyclovir (Zovirax -) 400 mg PO BID [facility] Last Admin: 08/14/18 10:40 Dose: Not Given Brimonidine Tartrate (Alphagan 0.2% -) 1 drop OU BID [facility] Last Admin: 08/14/18 10:42 Dose: 1 drop Collagenase (Santyl -) 1 applic TP DAILY [facility]; Protocol Last Admin: 08/13/18 23:24 Dose: 1 applic Cyclobenzaprine HCl (Flexeril -) 5 mg PO BID [facility] Furosemide (Lasix -) 20 mg PO DAILY [facility] Last Admin: 08/14/18 10:42 Dose: 20 mg Furosemide (Lasix -) 20 mg PO ONCE ONE Stop: 08/14/18 12:16 Lidocaine (Lidoderm Patch -) 1 patch TP DAILY [facility] Miscellaneous (Lidoderm Patch Removal) 1 each MC DAILY@2200 [facility] Rivaroxaban (Xarelto -) 20 mg PO DAILY [facility] Last Admin: 08/14/18 10:42 Dose: 20 mg Sodium Chloride (Sodium Chloride Tablet -) 1 gm PO ONCE ONE Stop: 08/14/18 12:31 Timolol Maleate (Timoptic 0.5%) 1 drop OU BID [facility] Last Admin: 08/14/18 10:43 Dose: 1 drop Tobramycin/Dexamethasone (Tobradex Ophthalmic Suspension -) 1 drop OD TID [facility] Last Admin: 08/14/18 06:31 Dose: 1 drop Valsartan (Diovan -) 320 mg PO DAILY [facility] Last Admin: 08/14/18 10:41 Dose: 320 mg - Objective Vital Signs: Vital Signs Temperature 98 F 08/14/18 06:58 Pulse Rate 61 08/14/18 06:58 Respiratory Rate 18 08/14/18 06:58 Blood Pressure 126/68 08/14/18 06:58 O2 Sat by Pulse Oximetry (%) 97 08/14/18 05:02 Eyes: Yes: WNL, Conjunctiva Clear, EOM Intact HENT: Yes: WNL, Atraumatic, Normocephalic Neck: Yes: WNL, Supple, Trachea Midline Cardiovascular: Yes: WNL, Regular Rate and Rhythm Respiratory: Yes: WNL, Regular, CTA Bilaterally Gastrointestinal: Yes: WNL, Normal Bowel Sounds Genitourinary: Yes: WNL Musculoskeletal: Yes: WNL Extremities: Yes: WNL Edema: Yes Edema: LLE: 1+, RLE: 1+ Integumentary: Yes: WNL Neurological: Yes: WNL, Alert, Oriented ...Motor Strength: WNL Psychiatric: Yes: WNL Labs: CBC, BMP 08/14/18 06:30 08/14/18 06:30 INR, PTT INR 1.43 (0.83-1.09) H 08/13/18 15:15 Problem List - Problems (1) Anticoagulated Code(s): Z79.01 - SKILLED NURSING (CURRENT) USE OF ANTICOAGULANTS (2) Closed head injury Code(s): S09.90XA - UNSPECIFIED INJURY OF HEAD, INITIAL ENCOUNTER (3) Dens fracture Code(s): S12.100A - UNSP DISP FX OF SECOND CERVICAL VERTEBRA, INIT FOR CLOS FX (4) Hyponatremia Code(s): E87.1 - HYPO-OSMOLALITY AND HYPONATREMIA (5) Fall Code(s): W19.XXXA - UNSPECIFIED FALL, INITIAL ENCOUNTER Qualifiers: Encounter type: initial encounter Qualified Code(s): W19.XXXA - Unspecified fall, initial encounter Assessment/Plan s/p fall/syncopy chf ashd s/p cabg AF Bivi paced hyponatremia Plan echo ICD interrogation iv panchoix neuro and nephrology f/u appreciated
[2018-08-14] MEDS ORDERED: FUROSEMIDE 20 MG TABLET (FP) PO ONE (12:15)
[2018-08-14] MEDS ORDERED: SODIUM CHLORIDE 1 GM TABLET PO ONE (12:30)
[2018-08-14] MEDS ORDERED: ACETAMINOPHEN 325 MG TABLET (FP) PO PRN (12:47)
[2018-08-14] MEDS: COLLAGENASE CLOSTRIDIUM HIST. 30 GRAMS TUBE TP SCH (12:53)
--- NOTE | 2018-08-14 13:40 | PN ---
Addendum entered and electronically signed by Deacon Meza, RESIDENT 17:28: straight catheter ordered for urine studies collection Original Note: Physical Exam: SUBJECTIVE: Patient seen and examined at bedside, c/o back pain. Denies head pain. OBJECTIVE: Vital Signs Period Temp Pulse Resp BP Sys/Hall Pulse Ox Last 24 Hr 97.3 F-99.2 F 58-80 18-18 123-136/68-85 97-99 GENERAL: A&Ox3, NAD HEAD: 4cm hematoma in the parietal region with an abrasion of the mid forehead EYES: PERRLA, EOMI, ENT: Oropharynx clear without exudates. Dry mucous membranes. (-) battles sign , no hemotympanum NECK: Able to move neck right and left without pain or tenderness, (-) lymphadenopathy, JVD, or masses. LUNGS: CTA b/l HEART: RRR, 2/6 systolic murmur ABDOMEN: +bs, soft, NT, ND MUSCULOSKELETAL: could not obtain access to spine for evaluation of tenderness EXTREMITIES: 2+ pulses, wwp, 2+ LE pitting edema b/l SKIN: Skin overlying buttocks broken with multiple closed ulcerations/lesions with no drainage NEUROLOGICAL: CN's, motor, and sensory systems without focal deficit. Normal speech. Gait not assessed. PSYCHIATRIC: Cooperative. Good eye contact. Appropriate mood and affect. Laboratory Results - last 24 hr 08/13/18 08/13/18 08/13/18 15:15 15:15 15:15 WBC 8.1 RBC 5.01 Hgb 14.9 Hct 45.5 H MCV 90.7 MCH 29.7 MCHC 32.7 RDW 24.4 H Plt Count 132 L MPV 8.4 Absolute Neuts (auto) 5.9 Neutrophils % 72.9 Lymphocytes % 17.0 Monocytes % 8.9 Eosinophils % 0.5 Basophils % 0.7 Nucleated RBC % 0 Platelet Estimate Platelet Comment Anisocytosis Microcytosis PT with INR 16.20 H INR 1.43 H Sodium Cancelled Potassium Cancelled Chloride Cancelled Carbon Dioxide Cancelled Anion Gap Cancelled BUN Cancelled Creatinine Cancelled Creat Clearance w eGFR Cancelled Random Glucose Cancelled Serum Osmolality Calcium Cancelled Magnesium Total Bilirubin Cancelled AST Cancelled ALT Cancelled Alkaline Phosphatase Cancelled Creatine Kinase Cancelled Troponin I Cancelled Total Protein Cancelled Albumin Cancelled Vitamin B12 TSH Blood Type Antibody Screen 08/13/18 08/13/18 08/13/18 15:15 16:49 16:50 WBC RBC Hgb Hct MCV MCH MCHC RDW Plt Count MPV Absolute Neuts (auto) Neutrophils % Lymphocytes % Monocytes % Eosinophils % Basophils % Nucleated RBC % Platelet Estimate Platelet Comment Anisocytosis Microcytosis PT with INR INR Sodium Potassium Chloride Carbon Dioxide Anion Gap BUN Creatinine Creat Clearance w eGFR Random Glucose Serum Osmolality Calcium Magnesium 2.0 Total Bilirubin AST ALT Alkaline Phosphatase Creatine Kinase 67 Troponin I 0.03 Total Protein Albumin Vitamin B12 TSH Blood Type Cancelled Antibody Screen Cancelled 08/13/18 08/13/18 08/13/18 16:50 16:50 16:50 WBC RBC Hgb Hct MCV MCH MCHC RDW Plt Count MPV Absolute Neuts (auto) Neutrophils % Lymphocytes % Monocytes % Eosinophils % Basophils % Nucleated RBC % Platelet Estimate Platelet Comment Anisocytosis Microcytosis PT with INR INR Sodium 125 L Potassium 4.8 Chloride 93 L Carbon Dioxide 21 Anion Gap 11 BUN 29 H Creatinine 0.9 Creat Clearance w eGFR 59.37 Random Glucose 108 H Serum Osmolality 297 Calcium 8.5 Magnesium Total Bilirubin 1.5 H AST 46 H ALT 41 Alkaline Phosphatase 72 Creatine Kinase Troponin I Total Protein 5.9 L Albumin 3.2 L Vitamin B12 TSH 3.31 Blood Type O POSITIVE Antibody Screen Negative 08/13/18 08/13/18 08/14/18 20:24 20:24 06:30 WBC 8.0 7.2 RBC 4.86 4.90 Hgb 14.6 14.5 Hct 44.3 44.7 MCV 91.1 91.2 MCH 29.9 29.7 MCHC 32.8 32.5 RDW 24.4 H 24.3 H Plt Count 140 126 L MPV 8.0 8.6 Absolute Neuts (auto) 5.6 4.6 Neutrophils % 69.3 63.6 Lymphocytes % 20.4 24.5 D Monocytes % 9.3 10.8 H Eosinophils % 0.2 0.3 Basophils % 0.8 0.8 Nucleated RBC % 0 0 Platelet Estimate Decreased Platelet Comment No clumping noted Anisocytosis 2+ Microcytosis 1+ PT with INR INR Sodium Potassium Chloride Carbon Dioxide Anion Gap BUN Creatinine Creat Clearance w eGFR Random Glucose Serum Osmolality Calcium Magnesium Total Bilirubin AST ALT Alkaline Phosphatase Creatine Kinase Troponin I Total Protein Albumin Vitamin B12 TSH Blood Type O POSITIVE Antibody Screen 08/14/18 08/14/18 08/14/18 06:30 06:30 06:30 WBC RBC Hgb Hct MCV MCH MCHC RDW Plt Count MPV Absolute Neuts (auto) Neutrophils % Lymphocytes % Monocytes % Eosinophils % Basophils % Nucleated RBC % Platelet Estimate Platelet Comment Anisocytosis Microcytosis PT with INR INR Sodium 125 L Potassium 4.5 Chloride 91 L Carbon Dioxide 22 Anion Gap 12 BUN 26 H Creatinine 0.8 Creat Clearance w eGFR > 60 Random Glucose 86 Serum Osmolality 260 L Calcium 8.6 Magnesium Total Bilirubin 1.9 H AST 39 H ALT 41 Alkaline Phosphatase 68 Creatine Kinase Troponin I Total Protein 5.7 L Albumin 3.2 L Vitamin B12 576 TSH Blood Type Antibody Screen Active Medications Generic Name Dose Route Start Last Admin Trade Name Freq PRN Reason Stop Dose Admin Acyclovir 400 mg 08/14/18 10:00 08/14/18 10:40 Zovirax - PO Not Given BID KATHARINA Brimonidine Tartrate 1 drop 08/14/18 10:00 08/14/18 10:42 Alphagan 0.2% - OU 1 drop BID KATHARINA Administration Collagenase 1 applic 08/13/18 20:45 08/13/18 23:24 Santyl - TP 1 applic DAILY KATHARINA Administration Protocol Cyclobenzaprine HCl 5 mg 08/14/18 22:00 Flexeril - PO BID KATHARINA Furosemide 20 mg 08/14/18 10:00 08/14/18 10:42 Lasix - PO 20 mg DAILY KATHARINA Administration Lidocaine 1 patch 08/15/18 10:00 Lidoderm Patch - TP DAILY KATHARINA Miscellaneous 1 each 08/15/18 22:00 Lidoderm Patch Removal MC DAILY@2200 KATHARINA Rivaroxaban 20 mg 08/14/18 10:00 08/14/18 10:42 Xarelto - PO 20 mg DAILY KATHARINA Administration Sodium Chloride 1 gm 08/14/18 12:30 Sodium Chloride Tablet - PO 08/14/18 12:31 ONCE ONE Timolol Maleate 1 drop 08/14/18 10:00 08/14/18 10:43 Timoptic 0.5% OU 1 drop BID KATHARINA Administration Tobramycin/Dexamethasone 1 drop 08/14/18 06:00 08/14/18 06:31 Tobradex Ophthalmic Suspension - OD 1 drop TID KATHARINA Administration Valsartan 320 mg 08/14/18 10:00 08/14/18 10:41 Diovan - PO 320 mg DAILY KATHARINA Administration ASSESSMENT/PLAN: 87 y/o F w/ PMHx falls, HTN, Atrial Fibrillation (On Xarelto), CHF, glaucoma, hyponatremia, herpes ophthalmicus, CAD S/P 2 vessel bypass and AICD/Pacemaker placement (April 2018) p/w fall onto head, found also to be hyponatremic. #s/p mechanical fall -noted to have h/o gait abnormalities, possibly 2/2 hyponatremia or CHF -head CT negative x 2 -c-spine CT with type II odontoid fracture, interval change from February [address], chronicity unknown -Xarelto restarted given no bleed -Will order U/A -Fall Risk precautions -Neuro checks q4h -Neurology consulted (Dr. Tsang) -Flexeril 5 BID -Tylenol 325 PRN for pain -L-spine CT ordered (see below) -EEG -serum aldolase, myoglobin, ESR, SPEP ordered per neuro -Cardiology consulted (Dr. Stephenson) -echo report pending -ICD interrogation #lumbar pain -L-spine CT: Rotatory levoscoliosis of lumbosacral spine. Multilevel chronic degenerative discogenic disease facet joint arthropathy. L2-L3. Facet joint arthropathy. Thickened partially calcified ligamentum flavum. Central spinal canal stenosis. Posterior annular calcifications. L3-L4. Facet joint arthropathy with calcified ligamentum flavum. Calcified posterior annulus. Flattened thecal sac. Central spinal canal stenosis. Bilateral neural foraminal narrowing. L4-L5. Moderately severe degenerative facet joint arthropathy with enlarged facet joints. Calcified ligamentum flavum. Degenerative anterior spondylolisthesis of L4 on L5 grade 1. Severe central spinal canal stenosis. Right neural foramina narrowing. L5-S1. Marked degenerative facet joint arthropathy with enlarged facet joints. Thickened ligamentum flavum. Disc protrusion with right paracentral posterior annular calcifications. Central spinal canal stenosis -lidocaine patches -PT consult placed -Flexeril 5 BID -Tylenol 325 PRN for pain #Systolic CHF with Bilateral Leg edema -S/P AICD/biventircular pacemaker April 2018 -With signs of possible hepatic congestion due to elevated bili and AST -home Lasix 20 PO -home Valsartan 320 -Leg elevation -Cardiology consulted (Dr. Stephenson) -echo report pending -ICD interrogation #Hyponatremia -chronic/recurrent issue (Na 126 at prior discharge) -nephrology consulted (Dr. Serrano) -restrict free water to 800 cc -CMP, urine sodium, serum osm, urine osm, urine cortisol, urine creatinine, AM cortisol ordered -tsh, B12, serum Cr wnl -1g NaCl PO given #Type II odontoid fracture -chronicity unknown -Pt denies any pain, full ROM of the neck -NeuroSx consulted -cervical collar #Stage I Pressure Injury -Santyl ordered -Will need wound care follow up as outpatient #CAD s/p CABG -On no ASA -Follows cardiology -Cardiology consult placed #Afib -Rate controlled -Xarelto #HTN -BP stable -home Valsartan 320 -Will need to confirm home medications #Glaucoma -Continue home eye drops #Herpes Ophthalmicus -Continue Acyclovir 400mg BID -Monitor BMP #F/E/N -free water restricted, no IVF -Hyponatremia, monitor lytes -Regular diet #PPx -SCD's for DVT. Moderate risk -No GI required #Dispo -med/surg -DNI not DNR Visit type - Emergency Visit Emergency Visit: No - New Patient This patient is new to me today: Yes Date on this admission: 08/14/18 - Critical Care Critical Care patient: No
--- NOTE | 2018-08-14 15:00 | ECHO ---
Name: ACE CHAPARRO Exam:Adult Echocardiogram Study Date: 08/14/2018 09:54 AM Age: 87 yrs Reason For Study: EF Height: 60 in Weight: 136 lb BSA: 1.6 m2 MMode/2D Measurements & Calculations IVSd: 0.90 cm Ao root diam: 2.9 cm LVIDd: 5.4 cm LA dimension: 4.6 cm LVIDs: 4.9 cm LVPWd: 0.86 cm EDV(Teich): 142.5 ml LAV (MOD-bp): 106.0 ml ESV(Teich): 114.8 ml TAPSE: 1.4 cm RV S Dre: 7.3 cm/sec Doppler Measurements & Calculations MV E max dre: 69.6 cm/sec MR max dre: 470.0 cm/sec MV A max dre: 32.1 cm/sec MR max P.5 mmHg MV E/A: 2.2 MV dec time: 0.13 sec TR max dre: 282.9 cm/sec PA V2 max: 47.8 cm/sec TR max P.3 mmHg PA max P.91 mmHg PI end-d dre: 157.1 cm/sec Med Peak E' Dre: 2.8 cm/sec Med E/e': 24.8 Lat Peak E' Dre: 4.0 cm/sec Lat E/e': 17.4 Procedure A two-dimensional transthoracic echocardiogram with color flow and Doppler was performed. Left Ventricle The left ventricle is normal in size. Left ventricular systolic function is severely reduced. Left Ve ntricular Filling pattern is normal for age. There is severe global hypokinesis of the left ventricle. Apical w all motion abnormality may reflect pacemaker activation. Right Ventricle The right ventricle is mildly dilated. There is a pacemaker lead in the right ventricle. The right ve ntricular systolic function is moderately reduced. Atria The left atrium is moderately dilated. The right atrium is severely dilated. Mitral Valve There is mild mitral valve thickening. There is no mitral valve stenosis. There is severe mitral regurgitation. Tricuspid Valve There is mild tricuspid valve thickening. There is no tricuspid stenosis. There is severe tricuspid regurgitation. Right ventricular systolic pressure is elevated at 40-50mmHg. Aortic Valve The aortic valve is normal in structure and function. No hemodynamically significant valvular aortic stenosis. No aortic regurgitation is present. Pulmonic Valve The pulmonic valve is not well visualized. There is no pulmonic valvular stenosis. Moderate to severe pulmonic valvular regurgitation. Great Vessels The aortic root is normal size. Pericardium/Pleura There is no pericardial effusion. Interpretation Summary The left ventricle is normal in size. Left ventricular systolic function is severely reduced. The left atrium is moderately dilated. Right ventricular systolic pressure is elevated at 40-50mmHg. There is severe tricuspid regurgitation. There is severe global hypokinesis of the left ventricle. Apical wall motion abnormality may reflect pacemaker activation. Moderate to severe pulmonic valvular regurgitation. The right atrium is severely dilated. The right ventricular systolic function is moderately reduced. Left Ventricular Filling pattern is normal for age. The right ventricle is mildly dilated. There is a pacemaker lead in the right ventricle. There is severe mitral regurgitation. MD Stephen Stephenson 08/14/2018 03:00 PM
--- NOTE | 2018-08-14 19:38 | PN ---
Teaching Attending Note Name of Resident: Deacon Meza ATTENDING PHYSICIAN STATEMENT I saw and evaluated the patient. I reviewed the resident's note and discussed the case with the resident. I agree with the resident's findings and plan as documented. SUBJECTIVE: No fever or chills. has lower back pain and feet pain which is chronic . no CORBIN . no visual changes OBJECTIVE: NAD Cv: RRR lungs: CTAB Ext : no edema. varicose veins and discoloration. ASSESSMENT AND PLAN: 87 y/o lady with h/o CHF, OA, AICD , A fib , HTN, CABG, CCY, and bilateral hip replacement who presented with a mechanical fall and head trauma 1- Mechanical fall: head CT x 2 neg for bleed has new odontoid Fx. - apply c collar - consult neuro Sx . 2-Hypotonic Hyponatremia: hard to determine volume status euvolemic vs hypovolemic. she does not look hypervolemic. has not been eating well in past few weeks . TSH Nl. - urine electrolytes and osm pending - appreciate renal input : fluid restriction - monitor NA level 3- h/o systolic heart failure ; cont po lasix and diovan 4- A fib : now in sinus . cont xarelto 5- ower back pain: no fx . DJD . CT reviewed. lidocaine patch PT . dispo ; HLOC
[2018-08-14 21:50] LABS: URINE APPEARANCE SLCLOUDY; URINE BILIRUBIN NEGATIVE (<2.0 mg/dL); URINE COLOR YELLOW; URINE GLUCOSE (UA) NEGATIVE (NEGATIVE); URINE KETONE NEGATIVE (NEGATIVE); URINE NITRITE POSITIVE (NEGATIVE); URINE PROTEIN NEGATIVE (NEGATIVE); URINE UROBILINOGEN NEGATIVE mg/dL (0.2-1.0)
[2018-08-14 21:51] LABS: URINE LEUK ESTERASE 3+ (NEGATIVE)
[2018-08-14] MEDS: CYCLOBENZAPRINE HCL 10 MG TABLET (FP) PO SCH (21:51)
[2018-08-14 21:52] LABS: EPI CELLS RARE /HPF (FEW); URINE BACTERIA RARE /hpf (NONE SEEN)
[2018-08-14 22:11] LABS: URINE HYALINE CAST 1 /lpf
[2018-08-15] MEDS: TOBRA 0.3%/DEXAMETH 0.1% OPHTHALMIC SUSP 2.5 ML BTL OD SCH ×3 (06:28→22:57)
[2018-08-15 07:46] LABS: HEMATOCRIT 44.6 % (32.4-45.2); HEMOGLOBIN 14.4 GM/dL (10.7-15.3); MCH 29.7 pg (25.7-33.7); MCHC 32.4 g/dl (32.0-36.0); MEAN CELL VOLUME 91.9 fl (80-96); MEAN PLT VOLUME 8.4 fl (7.5-11.1); PLATELET COUNT 118 K/MM3 (134-434); RBC 4.85 M/mm3 (3.60-5.2); RDW 24.7 % (11.6-15.6); WHITE BLOOD COUNT 6.2 K/mm3 (4.0-10.0)
[2018-08-15 08:57] LABS: ALBUMIN 2.9 g/dl (3.4-5.0); ANION GAP 7 MMOL/L (8-16); BLOOD UREA NITROGEN 21 mg/dL (7-18); CALCIUM 8.1 mg/dL (8.5-10.1); CHLORIDE 92 mmol/L (98-107); CO2 27 mmol/L (21-32); GLUCOSE,RANDOM 82 mg/dL (74-106); POTASSIUM 4.2 mmol/L (3.5-5.1); SODIUM 126 mmol/L (136-145)
[2018-08-15 09:02] LABS: ALK PHOS 69 U/L (45-117); BILIRUBIN,TOTAL 1.7 mg/dL (0.2-1); CREATININE 0.7 mg/dL (0.55-1.3); SGOT/AST 34 U/L (15-37); SGPT/ALT 38 U/L (13-61); TOT PROT 5.3 g/dl (6.4-8.2); URIC ACID 7.8 mg/dL (2.6-7.2)
[2018-08-15] MEDS: COLLAGENASE CLOSTRIDIUM HIST. 30 GRAMS TUBE TP SCH (10:00)
--- NOTE | 2018-08-15 10:20 | PN ---
Progress Note, Physician History of Present Illness: events noted Chart reviewed I spoke to the son was a physician at [facility] at length about his mother's recent care. According to the agent son patient has been noted with increasing difficulty with concentration periods of confusion after she had the cardiac procedure. Patient had an echocardiogram yesterday patient still metabolically unstable with hyponatremia. No report of any blurry vision double vision. Patient claims today that she doesn't have any back pain CAT scan of the lumbosacral spine was noted with multiple level of moderate severe stenosis as expected. - Current Medication List Current Medications: Active Medications Acetaminophen (Tylenol -) 325 mg PO Q4H PRN PRN Reason: PAIN Last Admin: 08/14/18 17:57 Dose: 325 mg Acyclovir (Zovirax -) 400 mg PO BID [facility] Last Admin: 08/14/18 21:55 Dose: Not Given Brimonidine Tartrate (Alphagan 0.2% -) 1 drop OU BID [facility] Last Admin: 08/14/18 21:54 Dose: 1 drop Collagenase (Santyl -) 1 applic TP DAILY [facility]; Protocol Last Admin: 08/14/18 12:53 Dose: 1 applic Cyclobenzaprine HCl (Flexeril -) 5 mg PO BID [facility] Last Admin: 08/14/18 21:51 Dose: 5 mg Furosemide (Lasix -) 40 mg PO DAILY [facility] Lidocaine (Lidoderm Patch -) 1 patch TP DAILY [facility] Miscellaneous (Lidoderm Patch Removal) 1 each MC DAILY@2200 [facility] Rivaroxaban (Xarelto -) 20 mg PO DAILY [facility] Last Admin: 08/14/18 10:42 Dose: 20 mg Spironolactone (Aldactone -) 12.5 mg PO DAILY [facility] Timolol Maleate (Timoptic 0.5%) 1 drop OU BID [facility] Last Admin: 08/14/18 21:54 Dose: 1 drop Tobramycin/Dexamethasone (Tobradex Ophthalmic Suspension -) 1 drop OD TID [facility] Last Admin: 08/15/18 06:28 Dose: 1 drop Valsartan (Diovan -) 320 mg PO DAILY [facility] Last Admin: 08/14/18 10:41 Dose: 320 mg - Objective Vital Signs: Vital Signs Temperature 97.6 F 08/15/18 06:00 Pulse Rate 60 08/15/18 06:00 Respiratory Rate 18 08/15/18 06:00 Blood Pressure 130/70 08/15/18 06:00 O2 Sat by Pulse Oximetry (%) 97 08/14/18 21:00 Constitutional: Yes: Calm, Anxious, Pallor Neurological: Yes: Alert, Oriented, Babinski negative ...Motor Strength: WNL Labs: CBC, BMP 08/15/18 06:30 08/15/18 06:30 INR, PTT INR 1.43 (0.83-1.09) H 08/13/18 15:15 Problem List - Problems (1) Fall Assessment/Plan: spinal stenosis Gait dysfunction multifactorial Early onset mild cognitive impairment/early onset Alzheimer after the cardiac procedure very common 1. Neuro checks every 2 hours. 2. Physical therapy. 3. DVT prophylaxis. 4. Follow-up with cardiology. 5. Results of the EEG. 6. Trial of Namenda 5 mg once daily. Code(s): W19.XXXA - UNSPECIFIED FALL, INITIAL ENCOUNTER Qualifiers: Encounter type: initial encounter Qualified Code(s): W19.XXXA - Unspecified fall, initial encounter
[2018-08-15 10:51] LABS: OSMOLALITY,SERUM 262 mosm/kg (278-305)
[2018-08-15] MEDS ORDERED: PT OWN MED DRAWER 7, Y5N ONE ×2 (11:26→22:44)
[2018-08-15] MEDS: LIDOCAINE 5% TOPICAL PATCH TP SCH (11:29)
[2018-08-15] MEDS: CYCLOBENZAPRINE HCL 10 MG TABLET (FP) PO SCH ×2 (11:29→22:57)
[2018-08-15] MEDS: FUROSEMIDE 40 MG TABLET (FP) PO SCH (11:30)
[2018-08-15] MEDS: ACYCLOVIR 400 MG TABLET PO SCH ×2 (11:31→23:15)
[2018-08-15] MEDS: RIVAROXABAN 20 MG TABLET PO SCH (11:31)
[2018-08-15] MEDS: BRIMONIDINE TARTRATE 0.2% OPHTHALMIC 5 ML BOTTLE OU SCH ×2 (11:37→23:15)
[2018-08-15] MEDS: SPIRONOLACTONE 25 MG TABLET (FP) PO SCH (11:37)
[2018-08-15] MEDS: TIMOLOL 0.5% OPHTHALMIC SOL 5 ML BOTTLE OU SCH ×2 (11:38→22:57)
--- NOTE | 2018-08-15 12:04 | PN ---
Teaching Attending Note Name of Resident: Deacon Meza ATTENDING PHYSICIAN STATEMENT I saw and evaluated the patient. I reviewed the resident's note and discussed the case with the resident. I agree with the resident's findings and plan as documented. SUBJECTIVE: No fever or chills . No abd pain, no CORBIN , no weakness, numbness or tingling. has chronic lower back pain . OBJECTIVE: NAD , soft collar on neck Cv: RRR lungs: bibasilar crackles Ext : 2+ edema on LE . varicose veins and discoloration. ASSESSMENT AND PLAN: 87 y/o lady with h/o CHF, OA, PPM , A fib , HTN, CABG, CCY, and bilateral hip replacement who presented with a mechanical fall and head trauma 1- Mechanical fall: with resultant Odontoid Fx - change C collar to hard one - neuro Sx consult pending . - pace maker interrogation 2-Hypotonic Hyponatremia: today her volume status appear to be hypervolemic after decreasing her lasix. ? possibly contributing to hyponatremia - agree with increasing lasix to 40 daily - monitor Na - cont free water restriction - elevated urine Na and osmolality reflect diuretics use 3- h/o systolic heart failure; cont po lasix and diovan 4- A fib : now in sinus . cont xarelto 5- Lower back pain: no fx. DJD . lidocaine patch PT . dispo ; HLOC
--- NOTE | 2018-08-15 12:56 | PN ---
Progress Note, Physician Chief Complaint: Pt alert; sitting in chair; no chest pain, dyspnea, or palpitations. History of Present Illness: 87-year-old white female s/p fall. Patient states was trying to get comfortable in the chair when she fell forward striking her forehead on the tiled floor. Patient states had no LOC had no complaints of dizziness or visual changes on the incident. Patient is currently on zeralto, has hx CABG 2 VD ?2016, severe systolic CHF--> ICD, and history of hypertension. As per daughter patient has irritation and mild breakdown to her buttocks which causes her to frequently move her position and fell approximately 3 weeks ago secondary to the same requiring her to go to the ER to [facility]. - Current Medication List Current Medications: Active Medications Acetaminophen (Tylenol -) 325 mg PO Q4H PRN PRN Reason: PAIN Last Admin: 08/14/18 17:57 Dose: 325 mg Acyclovir (Zovirax -) 400 mg PO BID [facility] Last Admin: 08/15/18 11:31 Dose: 400 mg Brimonidine Tartrate (Alphagan 0.2% -) 1 drop OU BID [facility] Last Admin: 08/15/18 11:37 Dose: 1 drop Collagenase (Santyl -) 1 applic TP DAILY [facility]; Protocol Last Admin: 08/14/18 12:53 Dose: 1 applic Cyclobenzaprine HCl (Flexeril -) 5 mg PO BID [facility] Last Admin: 08/15/18 11:29 Dose: 5 mg Furosemide (Lasix -) 40 mg PO DAILY [facility] Last Admin: 08/15/18 11:30 Dose: 40 mg Lidocaine (Lidoderm Patch -) 1 patch TP DAILY [facility] Last Admin: 08/15/18 11:29 Dose: 1 patch Memantine (Namenda -) 5 mg PO BID [facility] Miscellaneous (Lidoderm Patch Removal) 1 each MC DAILY@2200 [facility] Rivaroxaban (Xarelto -) 20 mg PO DAILY [facility] Last Admin: 08/15/18 11:31 Dose: 20 mg Spironolactone (Aldactone -) 12.5 mg PO DAILY [facility] Last Admin: 08/15/18 11:37 Dose: 12.5 mg Timolol Maleate (Timoptic 0.5%) 1 drop OU BID [facility] Last Admin: 08/15/18 11:38 Dose: 1 drop Tobramycin/Dexamethasone (Tobradex Ophthalmic Suspension -) 1 drop OD TID [facility] Last Admin: 08/15/18 06:28 Dose: 1 drop Valsartan (Diovan -) 320 mg PO DAILY [facility] Last Admin: 08/14/18 10:41 Dose: 320 mg - Objective Vital Signs: Vital Signs Temperature 97.6 F 08/15/18 06:00 Pulse Rate 60 08/15/18 06:00 Respiratory Rate 18 08/15/18 06:00 Blood Pressure 130/70 08/15/18 06:00 O2 Sat by Pulse Oximetry (%) 97 08/14/18 21:00 Constitutional: Yes: Calm Eyes: Yes: WNL HENT: Yes: WNL Neck: Yes: Decreased ROM, Other Cardiovascular: Yes: S2 (split) Respiratory: Yes: Regular Gastrointestinal: Yes: Soft ...Rectal Exam: Yes: Deferred Genitourinary: No: Anuria Breast(s): Yes: WNL Musculoskeletal: Yes: Muscle Weakness Extremities: Yes: Cool Edema: No Peripheral Pulses WNL: No Peripheral Pulses: Left Doralis Pedis: 1+, Right Dorsalis Pedis: 1+ Integumentary: Yes: Erythema (mild (feet)) Neurological: Yes: Alert, Oriented, Weakness Psychiatric: Yes: Alert, Oriented Labs: CBC, BMP 08/15/18 06:30 08/15/18 06:30 INR, PTT INR 1.43 (0.83-1.09) H 08/13/18 15:15 Abnormal Lab Results 08/16/18 08/16/18 07:30 07:30 RDW 24.8 H Plt Count 116 L Monocytes % 11.0 H Sodium 130 L Chloride 96 L BUN 19 H Problem List - Problems (1) Acute on chronic systolic (congestive) heart failure Assessment/Plan: Pt is on valsartan, IV furosemide. Add spironolactone 12.5 mg daily; increase as tolerated. F/u electrolytes (hyponatremic). Isand Os, daily weight, BUN/Cr, electrolytes. Code(s): I50.23 - ACUTE ON CHRONIC SYSTOLIC (CONGESTIVE) HEART FAILURE (2) Hyponatremia Assessment/Plan: Discussed with novelty twister operator. Pt has been sporadic in use of furosemide; now on daily IV; f/u Na Spinronlactone started for severe systolic CHF, diuresis. Code(s): E87.1 - HYPO-OSMOLALITY AND HYPONATREMIA (3) Fall Code(s): W19.XXXA - UNSPECIFIED FALL, INITIAL ENCOUNTER Qualifiers: Encounter type: initial encounter Qualified Code(s): W19.XXXA - Unspecified fall, initial encounter (4) ICD (implantable cardioverter-defibrillator) in place Code(s): Z95.810 - PRESENCE OF AUTOMATIC (IMPLANTABLE) CARDIAC DEFIBRILLATOR (5) Dementia Code(s): F03.90 - UNSPECIFIED DEMENTIA WITHOUT BEHAVIORAL DISTURBANCE (6) Change in mental state Assessment/Plan: on Namenda Code(s): R41.82 - ALTERED MENTAL STATUS, UNSPECIFIED (7) Status post fall Assessment/Plan: wearing collar; chronci odontoid fracture. for nuerosurgical consult. Code(s): Z91.81 - HISTORY OF FALLING
[2018-08-15] MEDS: VALSARTAN 160 MG TABLET (UD) PO SCH (13:38)
--- NOTE | 2018-08-15 13:54 | PN ---
Physical Exam: SUBJECTIVE: Patient seen and examined at bedside, c/o back pain and buttock irritation. Denies head pain. Denies dysuria. OBJECTIVE: Vital Signs Period Temp Pulse Resp BP Sys/Hall Pulse Ox Last 24 Hr 97.4 F-97.7 F 60-70 17-19 118-130/54-70 97 GENERAL: A&Ox3, NAD HEAD: 4cm hematoma in the parietal region with an abrasion of the mid forehead EYES: PERRLA, EOMI, ENT: Oropharynx clear without exudates. MMM. NECK: could not assess with cervical collar on LUNGS: bibasilar crackles HEART: RRR, 2/6 systolic murmur ABDOMEN: +bs, soft, NT, ND MUSCULOSKELETAL: could not obtain access to spine for evaluation of tenderness EXTREMITIES: 2+ pulses, wwp, 2+ LE pitting edema b/l SKIN: Skin overlying buttocks broken with multiple closed ulcerations/lesions with no drainage NEUROLOGICAL: CN's, motor, and sensory systems without focal deficit. Normal speech. Gait not assessed. PSYCHIATRIC: Cooperative. Good eye contact. Appropriate mood and affect. Laboratory Results - last 24 hr 08/14/18 08/14/18 08/14/18 19:55 19:55 19:55 WBC RBC Hgb Hct MCV MCH MCHC RDW Plt Count MPV ESR Sodium Potassium Chloride Carbon Dioxide Anion Gap BUN Creatinine Creat Clearance w eGFR Random Glucose Serum Osmolality Uric Acid Calcium Total Bilirubin AST ALT Alkaline Phosphatase Total Protein Albumin Urine Color Yellow Urine Appearance Slcloudy Urine pH 6.0 Ur Specific [place] 1.008 Urine Protein Negative Urine Glucose (UA) Negative Urine Ketones Negative Urine Blood 1+ H Urine Nitrite Positive Urine Bilirubin Negative Urine Urobilinogen Negative Ur Leukocyte Esterase 3+ H Urine WBC (Auto) 75 Urine RBC (Auto) 1 Ur Epithelial Cells Rare Urine Bacteria Rare Hyaline Casts 1 Urine Osmolality 353 Ur Random Sodium 87 Ur Random Potassium 23.9 L Ur Random Chloride 111 Urine Creatinine 08/14/18 08/15/18 08/15/18 19:55 06:30 06:30 WBC RBC Hgb Hct MCV MCH MCHC RDW Plt Count MPV ESR 2 Sodium 126 L Potassium 4.2 Chloride 92 L Carbon Dioxide 27 Anion Gap 7 L BUN 21 H Creatinine 0.7 Creat Clearance w eGFR > 60 Random Glucose 82 Serum Osmolality 262 L Uric Acid 7.8 H Calcium 8.1 L Total Bilirubin 1.7 H AST 34 ALT 38 Alkaline Phosphatase 69 Total Protein 5.3 L Albumin 2.9 L Urine Color Urine Appearance Urine pH Ur Specific [place] Urine Protein Urine Glucose (UA) Urine Ketones Urine Blood Urine Nitrite Urine Bilirubin Urine Urobilinogen Ur Leukocyte Esterase Urine WBC (Auto) Urine RBC (Auto) Ur Epithelial Cells Urine Bacteria Hyaline Casts Urine Osmolality Ur Random Sodium Ur Random Potassium Ur Random Chloride Urine Creatinine 22.8 L 08/15/18 06:30 WBC 6.2 RBC 4.85 Hgb 14.4 Hct 44.6 MCV 91.9 MCH 29.7 MCHC 32.4 RDW 24.7 H Plt Count 118 L MPV 8.4 ESR Sodium Potassium Chloride Carbon Dioxide Anion Gap BUN Creatinine Creat Clearance w eGFR Random Glucose Serum Osmolality Uric Acid Calcium Total Bilirubin AST ALT Alkaline Phosphatase Total Protein Albumin Urine Color Urine Appearance Urine pH Ur Specific [place] Urine Protein Urine Glucose (UA) Urine Ketones Urine Blood Urine Nitrite Urine Bilirubin Urine Urobilinogen Ur Leukocyte Esterase Urine WBC (Auto) Urine RBC (Auto) Ur Epithelial Cells Urine Bacteria Hyaline Casts Urine Osmolality Ur Random Sodium Ur Random Potassium Ur Random Chloride Urine Creatinine Active Medications Generic Name Dose Route Start Last Admin Trade Name Freq PRN Reason Stop Dose Admin Acetaminophen 325 mg 08/14/18 12:47 08/14/18 17:57 Tylenol - PO 325 mg Q4H PRN Administration PAIN Acyclovir 400 mg 08/14/18 10:00 08/15/18 11:31 Zovirax - PO 400 mg BID KATHARINA Administration Brimonidine Tartrate 1 drop 08/14/18 10:00 08/15/18 11:37 Alphagan 0.2% - OU 1 drop BID KATHARINA Administration Collagenase 1 applic 08/13/18 20:45 08/14/18 12:53 Santyl - TP 1 applic DAILY KATHARINA Administration Protocol Cyclobenzaprine HCl 5 mg 08/14/18 22:00 08/15/18 11:29 Flexeril - PO 5 mg BID KATHARINA Administration Furosemide 40 mg 08/15/18 09:30 08/15/18 11:30 Lasix - PO 40 mg DAILY KATHARINA Administration Lidocaine 1 patch 08/15/18 10:00 08/15/18 11:29 Lidoderm Patch - TP 1 patch DAILY KATHARINA Administration Memantine 5 mg 08/15/18 22:00 Namenda - PO BID KATHARINA Miscellaneous 1 each 08/15/18 22:00 Lidoderm Patch Removal MC DAILY@2200 [facility] Rivaroxaban 20 mg 08/14/18 10:00 08/15/18 11:31 Xarelto - PO 20 mg DAILY KATHARINA Administration Spironolactone 12.5 mg 08/15/18 10:00 08/15/18 11:37 Aldactone - PO 12.5 mg DAILY KATHARINA Administration Timolol Maleate 1 drop 08/14/18 10:00 08/15/18 11:38 Timoptic 0.5% OU 1 drop BID KATHARINA Administration Tobramycin/Dexamethasone 1 drop 08/14/18 06:00 08/15/18 06:28 Tobradex Ophthalmic Suspension - OD 1 drop TID KATHARINA Administration Valsartan 320 mg 08/14/18 10:00 08/15/18 13:38 Diovan - PO 320 mg DAILY KATHARINA Administration ASSESSMENT/PLAN: 87 y/o F w/ PMHx falls, HTN, Atrial Fibrillation (On Xarelto), CHF, glaucoma, hyponatremia, herpes ophthalmicus, CAD S/P 2 vessel bypass and AICD/Pacemaker placement (April 2018) p/w fall onto head, found also to be hyponatremic. #s/p mechanical fall -noted to have h/o gait abnormalities, possibly 2/2 hyponatremia or CHF -head CT negative x 2 -c-spine CT with type II odontoid fracture, interval change from February [address], chronicity unknown -Xarelto restarted given no bleed -Fall Risk precautions -Neuro checks q4h -Neurology consulted (Dr. Tsang) -Namenda 5 started -Flexeril 5 BID -Tylenol 325 PRN for pain -L-spine CT ordered (see below) -EEG -serum aldolase, myoglobin, ESR, SPEP ordered per neuro -Cardiology consulted (Dr. Stephenson/Dr. Tello following) -echo: 25% EF -ICD interrogation #Type II odontoid fracture -chronicity unknown -Pt denies any pain, full ROM of the neck -NeuroSx consulted, Dr. aMlik following -per NeuroSx: CT shows possible interval worsening of Fx, MR would be better study -PPM placed by Dr. Srivastava at [facility], Pt's son believes it is MR compatible, will obtain records from [place] re: MR-compatibility -Dr. Malik is inclined to pursue Sx after metabolic and cardiac issues are stabilized -recommends hard cervical collar in interim #Hyponatremia -chronic/recurrent issue (Na 126 at prior discharge) -clinical status now appears hypervolemic as per PE -nephrology consulted (Dr. Serrano) -cont restrict free water to 800 cc -elevated urine osm and Na, but may be 2/2 Lasix -FENa 2.4 -increase Lasix to 40 PO -starting spironolactone 12.5 -tsh, B12, serum Cr wnl -follow nephro reccs #Systolic CHF with Bilateral Leg edema -S/P AICD/biventircular pacemaker April 2018 -With signs of possible hepatic congestion due to elevated bili and AST -Lasix 40 PO -adding spironolactone 12.5 -home Valsartan 320 -Leg elevation -Cardiology consulted (Dr. Stephenson) -echo as per above #lumbar pain -L-spine CT: Rotatory levoscoliosis of lumbosacral spine. Multilevel chronic degenerative discogenic disease facet joint arthropathy. L2-L3. Facet joint arthropathy. Thickened partially calcified ligamentum flavum. Central spinal canal stenosis. Posterior annular calcifications. L3-L4. Facet joint arthropathy with calcified ligamentum flavum. Calcified posterior annulus. Flattened thecal sac. Central spinal canal stenosis. Bilateral neural foraminal narrowing. L4-L5. Moderately severe degenerative facet joint arthropathy with enlarged facet joints. Calcified ligamentum flavum. Degenerative anterior spondylolisthesis of L4 on L5 grade 1. Severe central spinal canal stenosis. Right neural foramina narrowing. L5-S1. Marked degenerative facet joint arthropathy with enlarged facet joints. Thickened ligamentum flavum. Disc protrusion with right paracentral posterior annular calcifications. Central spinal canal stenosis -lidocaine patches -PT consult placed, treatment is PT -Flexeril 5 BID -Tylenol 325 PRN for pain -no surgical intervention per Dr. Malik #Stage I Pressure Injury -Santyl ordered -Will need wound care follow up as outpatient #CAD s/p CABG -On Xarelto, no ASA -Follows cardiology -Cardiology consult placed #Afib -Rate controlled -Xarelto #HTN -BP stable -home Valsartan 320 -Will need to confirm home medications #Glaucoma -Continue home eye drops #Herpes Ophthalmicus -Continue Acyclovir 400mg BID -Monitor BMP #F/E/N -free water restricted, no IVF -Hyponatremia, monitor lytes -Regular diet #PPx -Xarelto 20 -No GI required #Dispo -med/surg -DNI not DNR Visit type - Emergency Visit Emergency Visit: No - New Patient This patient is new to me today: No - Critical Care Critical Care patient: No
--- NOTE | 2018-08-15 15:57 | PN ---
Progress Note, Physician History of Present Illness: Pt seen and examined at bedside. She denies shortness of breath. She complains of neck discomfort. - Current Medication List Current Medications: Active Medications Acetaminophen (Tylenol -) 325 mg PO Q4H PRN PRN Reason: PAIN Last Admin: 08/14/18 17:57 Dose: 325 mg Acyclovir (Zovirax -) 400 mg PO BID [facility] Last Admin: 08/15/18 11:31 Dose: 400 mg Brimonidine Tartrate (Alphagan 0.2% -) 1 drop OU BID [facility] Last Admin: 08/15/18 11:37 Dose: 1 drop Collagenase (Santyl -) 1 applic TP DAILY [facility]; Protocol Last Admin: 08/14/18 12:53 Dose: 1 applic Cyclobenzaprine HCl (Flexeril -) 5 mg PO BID [facility] Last Admin: 08/15/18 11:29 Dose: 5 mg Furosemide (Lasix -) 40 mg PO DAILY [facility] Last Admin: 08/15/18 11:30 Dose: 40 mg Lidocaine (Lidoderm Patch -) 1 patch TP DAILY [facility] Last Admin: 08/15/18 11:29 Dose: 1 patch Memantine (Namenda -) 5 mg PO BID [facility] Miscellaneous (Lidoderm Patch Removal) 1 each MC DAILY@2200 [facility] Rivaroxaban (Xarelto -) 20 mg PO DAILY [facility] Last Admin: 08/15/18 11:31 Dose: 20 mg Spironolactone (Aldactone -) 12.5 mg PO DAILY [facility] Last Admin: 08/15/18 11:37 Dose: 12.5 mg Timolol Maleate (Timoptic 0.5%) 1 drop OU BID [facility] Last Admin: 08/15/18 11:38 Dose: 1 drop Tobramycin/Dexamethasone (Tobradex Ophthalmic Suspension -) 1 drop OD TID [facility] Last Admin: 08/15/18 06:28 Dose: 1 drop Valsartan (Diovan -) 320 mg PO DAILY [facility] Last Admin: 08/15/18 13:38 Dose: 320 mg - Objective Vital Signs: Vital Signs Temperature 97.7 F 08/15/18 15:13 Pulse Rate 62 08/15/18 15:13 Respiratory Rate 18 08/15/18 06:00 Blood Pressure 130/70 08/15/18 06:00 O2 Sat by Pulse Oximetry (%) 97 08/14/18 21:00 Constitutional: Yes: Calm Eyes: Yes: Conjunctiva Clear HENT: Yes: Atraumatic Cardiovascular: Yes: S1, S2 Respiratory: Yes: Rhonchi Gastrointestinal: Yes: Soft Genitourinary: Yes: WNL Musculoskeletal: Yes: WNL Edema: Yes Edema: LLE: 2+, RLE: 2+ Integumentary: Yes: Venous Stasis Changes Neurological: Yes: Oriented Psychiatric: Yes: Oriented Labs: CBC, BMP 08/15/18 06:30 08/15/18 06:30 INR, PTT INR 1.43 (0.83-1.09) H 08/13/18 15:15 Problem List - Problems (1) Acute on chronic systolic (congestive) heart failure Code(s): I50.23 - ACUTE ON CHRONIC SYSTOLIC (CONGESTIVE) HEART FAILURE (2) ICD (implantable cardioverter-defibrillator) in place Code(s): Z95.810 - PRESENCE OF AUTOMATIC (IMPLANTABLE) CARDIAC DEFIBRILLATOR (3) Hyponatremia Code(s): E87.1 - HYPO-OSMOLALITY AND HYPONATREMIA (4) Fall Code(s): W19.XXXA - UNSPECIFIED FALL, INITIAL ENCOUNTER Qualifiers: Encounter type: initial encounter Qualified Code(s): W19.XXXA - Unspecified fall, initial encounter Assessment/Plan Current Medications Generic Name Dose Route Start Last Admin Trade Name Freq PRN Reason Stop Dose Admin Acetaminophen 325 mg 08/14/18 12:47 08/14/18 17:57 Tylenol - PO 325 mg Q4H PRN Administration PAIN Acyclovir 400 mg 08/14/18 10:00 08/15/18 11:31 Zovirax - PO 400 mg BID KATHARINA Administration Brimonidine Tartrate 1 drop 08/14/18 10:00 08/15/18 11:37 Alphagan 0.2% - OU 1 drop BID KATHARINA Administration Collagenase 1 applic 08/13/18 20:45 08/14/18 12:53 Santyl - TP 1 applic DAILY KATHARINA Administration Protocol Cyclobenzaprine HCl 5 mg 08/14/18 22:00 08/15/18 11:29 Flexeril - PO 5 mg BID KATHARINA Administration Furosemide 40 mg 08/15/18 09:30 08/15/18 11:30 Lasix - PO 40 mg DAILY KATHARINA Administration Lidocaine 1 patch 08/15/18 10:00 08/15/18 11:29 Lidoderm Patch - TP 1 patch DAILY KATHARINA Administration Memantine 5 mg 08/15/18 22:00 Namenda - PO BID KATHARINA Miscellaneous 1 each 08/15/18 22:00 Lidoderm Patch Removal MC DAILY@2200 [facility] Rivaroxaban 20 mg 08/14/18 10:00 08/15/18 11:31 Xarelto - PO 20 mg DAILY KATHARINA Administration Spironolactone 12.5 mg 08/15/18 10:00 08/15/18 11:37 Aldactone - PO 12.5 mg DAILY KATHARINA Administration Timolol Maleate 1 drop 08/14/18 10:00 08/15/18 11:38 Timoptic 0.5% OU 1 drop BID KATHARINA Administration Tobramycin/Dexamethasone 1 drop 08/14/18 06:00 08/15/18 06:28 Tobradex Ophthalmic Suspension - OD 1 drop TID KATHARINA Administration Valsartan 320 mg 08/14/18 10:00 08/15/18 13:38 Diovan - PO 320 mg DAILY KATHARINA Administration Impression 1. hyponatremia 2. CHF 3. CAD 4. s/p fall 5. a-fib 6. HTN Plan - agree with spironolactone - increased lasix to 40 mg - pt volume overloaded - monitor lytes - discussed with cardio - discussed her son Dr Parkinson - follow cortisol - restrict free water to 800 cc - will follow Dr Serrano
[2018-08-15 16:05] LABS: CHOLESTEROL 113 mg/dL (50-200); HDL CHOLESTEROL 44 mg/dL (40-60); TRIGLYCERIDES 92 mg/dL (0-150)
[2018-08-15 19:19] VITALS: BMI 25.9
[2018-08-15] MEDS: MEMANTINE HCL 5 MG TABLET (UD) PO SCH (22:57)
[2018-08-15] MEDS: LIDOCAINE PATCH REMOVAL MC SCH (22:57)
[2018-08-16] MEDS ORDERED: PT OWN MED DRAWER 7, Y5N ONE ×3 (05:52→21:13)
[2018-08-16] MEDS: TOBRA 0.3%/DEXAMETH 0.1% OPHTHALMIC SUSP 2.5 ML BTL OD SCH ×3 (06:34→21:48)
[2018-08-16 07:50] LABS: BASO % 0.8 % (0-2.0); EOS % 0.3 % (0-4.5); HEMOGLOBIN 14.7 GM/dL (10.7-15.3); LYMPH % 21.4 % (8-40); MCH 29.9 pg (25.7-33.7); MCHC 32.6 g/dl (32.0-36.0); MEAN CELL VOLUME 91.8 fl (80-96); NEUT % 66.5 % (42.8-82.8); PLATELET COUNT 116 K/MM3 (134-434); RDW 24.8 % (11.6-15.6); WHITE BLOOD COUNT 7.6 K/mm3 (4.0-10.0)
[2018-08-16 08:49] LABS: ANION GAP 12 MMOL/L (8-16); BLOOD UREA NITROGEN 19 mg/dL (7-18); CALCIUM 8.7 mg/dL (8.5-10.1); CHLORIDE 96 mmol/L (98-107); CO2 22 mmol/L (21-32); CREATININE 0.7 mg/dL (0.55-1.3); GLUCOSE,RANDOM 81 mg/dL (74-106); MAGNESIUM 1.9 mg/dL (1.8-2.4); PHOSPHOROUS 3.3 mg/dL (2.5-4.9); POTASSIUM 4.7 mmol/L (3.5-5.1); SODIUM 130 mmol/L (136-145)
[2018-08-16] MEDS: ACYCLOVIR 400 MG TABLET PO SCH ×2 (10:32→22:16)
[2018-08-16] MEDS: RIVAROXABAN 20 MG TABLET PO SCH (10:33)
[2018-08-16] MEDS: VALSARTAN 160 MG TABLET (UD) PO SCH (10:33)
[2018-08-16] MEDS: MEMANTINE HCL 5 MG TABLET (UD) PO SCH ×2 (10:33→21:48)
[2018-08-16] MEDS: SPIRONOLACTONE 25 MG TABLET (FP) PO SCH (10:33)
[2018-08-16] MEDS: CYCLOBENZAPRINE HCL 10 MG TABLET (FP) PO SCH ×2 (10:34→21:49)
[2018-08-16] MEDS: FUROSEMIDE 40 MG TABLET (FP) PO SCH (10:34)
[2018-08-16] MEDS: LIDOCAINE 5% TOPICAL PATCH TP SCH (10:35)
[2018-08-16] MEDS: COLLAGENASE CLOSTRIDIUM HIST. 30 GRAMS TUBE TP SCH (10:35)
[2018-08-16] MEDS: TIMOLOL 0.5% OPHTHALMIC SOL 5 ML BOTTLE OU SCH ×2 (10:35→21:48)
[2018-08-16] MEDS: BRIMONIDINE TARTRATE 0.2% OPHTHALMIC 5 ML BOTTLE OU SCH ×2 (10:36→21:48)
--- NOTE | 2018-08-16 10:55 | CONSULT ---
Consult - text type - Consultation Consultation Note: NEUROSURGERY CONSULTATION Cristina Parkinson is an 87 year old female who was admitted after a recent fall where she struck her forehead. She has multiple medical problems including cardiac disease and electrolyte abnormalities manifesting at this time with hyponatremia. Head CT was unremarkable for acute traumatic pathology. Lumbar CT demonstrates a significant Lumbar degenerative scoliosis with coronal plane abnormality and osteophytes, facet and ligamentum flavum hypertrophy, listheses, vacuum phenomenon and disc protrusions at multiple levels. There is no suggestion of acuity and the patient has known about this diagnosis. 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 This was noted on CT done in January 2017 when it did not appear particularly acute and she had significant pannus around the odontoid which had calcifications in it. She was managed with a rigid Cervical orthosis for 3 months after which she independently elected to stop using the collar. The new CT shows the same fracture with no interval healing. Indeed, it appears that there has been either erosion of the fracture surfaces or slight separation of the bone fragments. I had a long discussion with the patient and her son, who is a Hospitalist Physician at [facility]. The patient is currently Neurologically non-focal, or at least at her baseline. She has no significant complaints of pain and is wearing a Cervical collar which she does not like and tends to loosen for comfort. I explained that her cardiac disease, for which implantable defibrillators were recently placed, and hyponatremia would appear to be her primary medical problems. There is no pathology in the head which mandates Neurosurgical attention at this time. The Lumbar disease may be quite painful, but certainly does not appear to be acute. Comprehensive treatment would involve a fairly substantial and challenging surgery which would not be appropriate in this setting. Paraspinal muscle strain may contribute to a multifactorial balance impairment in that postural adjustments may not be made due to splinting to reduce pain from her Lumbar spine. A light fabric corset or abdominal binder might be considered to help with this. The primary Neurosurgical focus at this time is the Odontoid fracture which may have progressed and definitely has not healed. The calcified pannus is again noted. I explained to the patient and son that there are three primary considerations with such a fracture: Pain from muscle splinting, pannus formation from chronic, subtle, instability and risk of catostrophic Neurological injury or from high spinal cord injury due to C1 on C2 translation. While the patient has little pain at this time and the pannus is not likely to increase in size or become symptomatic in the near future, instability of this complex represents my primary concern. Although she has had this fracture for some time, the mechanism of her recent fall and CT findings hint at potential that she has potential for further instability at this level. Short term management in a Cervical collar should protect her. If MRI can be performed safely, this would yield valuable information as to the extent of Cervicomedullary compression from the pannus and findings of acuity (bone edema , parafracture hematoma or ligamentous damage). Treatment for this fracture can be decided after medical optimization and further characterization with MRI. Treatment options include: 1 - no treatment (risking spinal cord injury if new instability has developed, yet offering comfort and no procedure/treatment related morbidity/discomfort) 2 - Cervical collar for prolonged period of time (this may avoid surgical morbidity and risk of spinal cord injury at the inconvenience of collar discomfort which may become permanent) 3 - Posterior C12 instrumentation (1 hour procedure with a 2-5% perioperative risk for major morbidity/mortality in exchange for significant reduction in the risk of spinal cord injury, will allow the pannus to resolve without the need for decompression and the ability to ultimately live without a collar) I will discuss these options further with patient and son as we develop more information on the current status of her fracture and address her other medical comorbidities.
--- NOTE | 2018-08-16 15:42 | PN ---
Progress Note, Physician History of Present Illness: Pt seen and examined at bedside. She is awake and alert. She complains of discomfort from the neck collar. - Current Medication List Current Medications: Active Medications Acetaminophen (Tylenol -) 325 mg PO Q4H PRN PRN Reason: PAIN Last Admin: 08/14/18 17:57 Dose: 325 mg Acyclovir (Zovirax -) 400 mg PO BID [facility] Last Admin: 08/16/18 10:32 Dose: 400 mg Brimonidine Tartrate (Alphagan 0.2% -) 1 drop OU BID [facility] Last Admin: 08/16/18 10:36 Dose: 1 drop Collagenase (Santyl -) 1 applic TP DAILY [facility]; Protocol Last Admin: 08/16/18 10:35 Dose: 1 applic Cyclobenzaprine HCl (Flexeril -) 5 mg PO BID [facility] Last Admin: 08/16/18 10:34 Dose: 5 mg Furosemide (Lasix -) 40 mg PO DAILY [facility] Last Admin: 08/16/18 10:34 Dose: 40 mg Lidocaine (Lidoderm Patch -) 1 patch TP DAILY [facility] Last Admin: 08/16/18 10:35 Dose: 1 patch Memantine (Namenda -) 5 mg PO BID [facility] Last Admin: 08/16/18 10:33 Dose: 5 mg Miscellaneous (Lidoderm Patch Removal) 1 each MC DAILY@2200 [facility] Last Admin: 08/15/18 22:57 Dose: 1 each Rivaroxaban (Xarelto -) 20 mg PO DAILY [facility] Last Admin: 08/16/18 10:33 Dose: 20 mg Spironolactone (Aldactone -) 12.5 mg PO DAILY [facility] Last Admin: 08/16/18 10:33 Dose: 12.5 mg Timolol Maleate (Timoptic 0.5%) 1 drop OU BID [facility] Last Admin: 08/16/18 10:35 Dose: 1 drop Tobramycin/Dexamethasone (Tobradex Ophthalmic Suspension -) 1 drop OD TID [facility] Last Admin: 08/16/18 06:34 Dose: 1 drop Valsartan (Diovan -) 320 mg PO DAILY [facility] Last Admin: 08/16/18 10:33 Dose: 320 mg - Objective Vital Signs: Vital Signs Temperature 98.1 F 08/16/18 15:21 Pulse Rate 63 08/16/18 09:00 Respiratory Rate 20 08/16/18 09:00 Blood Pressure 128/74 08/16/18 09:00 O2 Sat by Pulse Oximetry (%) 97 08/15/18 21:00 Constitutional: Yes: Calm Eyes: Yes: Conjunctiva Clear Cardiovascular: Yes: JVD, S1, S2 Respiratory: Yes: CTA Bilaterally Gastrointestinal: Yes: Normal Bowel Sounds, Soft Genitourinary: Yes: WNL Musculoskeletal: Yes: WNL Edema: Yes Edema: LLE: 1+, RLE: 1+ Integumentary: Yes: Venous Stasis Changes Neurological: Yes: Oriented Psychiatric: Yes: Oriented Labs: CBC, BMP 08/16/18 07:30 08/16/18 07:30 INR, PTT INR 1.43 (0.83-1.09) H 08/13/18 15:15 Problem List - Problems (1) Acute on chronic systolic (congestive) heart failure Code(s): I50.23 - ACUTE ON CHRONIC SYSTOLIC (CONGESTIVE) HEART FAILURE (2) ICD (implantable cardioverter-defibrillator) in place Code(s): Z95.810 - PRESENCE OF AUTOMATIC (IMPLANTABLE) CARDIAC DEFIBRILLATOR (3) Hyponatremia Code(s): E87.1 - HYPO-OSMOLALITY AND HYPONATREMIA (4) Fall Code(s): W19.XXXA - UNSPECIFIED FALL, INITIAL ENCOUNTER Qualifiers: Encounter type: initial encounter Qualified Code(s): W19.XXXA - Unspecified fall, initial encounter Assessment/Plan Current Medications Generic Name Dose Route Start Last Admin Trade Name Freq PRN Reason Stop Dose Admin Acetaminophen 325 mg 08/14/18 12:47 08/14/18 17:57 Tylenol - PO 325 mg Q4H PRN Administration PAIN Acyclovir 400 mg 08/14/18 10:00 08/16/18 10:32 Zovirax - PO 400 mg BID KATHARINA Administration Brimonidine Tartrate 1 drop 08/14/18 10:00 08/16/18 10:36 Alphagan 0.2% - OU 1 drop BID KATHARINA Administration Collagenase 1 applic 08/13/18 20:45 08/16/18 10:35 Santyl - TP 1 applic DAILY [facility]ARINA Administration Protocol Cyclobenzaprine HCl 5 mg 08/14/18 22:00 08/16/18 10:34 Flexeril - PO 5 mg BID KATHARINA Administration Furosemide 40 mg 08/15/18 09:30 08/16/18 10:34 Lasix - PO 40 mg DAILY [facility]INA Administration Lidocaine 1 patch 08/15/18 10:00 08/16/18 10:35 Lidoderm Patch - TP 1 patch DAILY [facility] Administration Memantine 5 mg 08/15/18 22:00 08/16/18 10:33 Namenda - PO 5 mg BID KATHARINA Administration Miscellaneous 1 each 08/15/18 22:00 08/15/18 22:57 Lidoderm Patch Removal MC 1 each DAILY@2200 KATHARINA Administration Rivaroxaban 20 mg 08/14/18 10:00 08/16/18 10:33 Xarelto - PO 20 mg DAILY [facility] Administration Spironolactone 12.5 mg 08/15/18 10:00 08/16/18 10:33 Aldactone - PO 12.5 mg DAILY [facility] Administration Timolol Maleate 1 drop 08/14/18 10:00 08/16/18 10:35 Timoptic 0.5% OU 1 drop BID KATHARINA Administration Tobramycin/Dexamethasone 1 drop 08/14/18 06:00 08/16/18 06:34 Tobradex Ophthalmic Suspension - OD 1 drop TID KATHARINA Administration Valsartan 320 mg 08/14/18 10:00 08/16/18 10:33 Diovan - PO 320 mg DAILY [facility] Administration Impression 1. hyponatremia 2. CHF 3. CAD 4. s/p fall 5. a-fib 6. HTN Plan - cont with diuretics - restrict free water - repeat labs in am - sodium is improving - volume status is improving - discussed her son Iggy - follow cortisol - restrict free water to 800 cc - will follow Dr Serrano
[2018-08-16 16:30] LABS: ALDOLASE 3.8 U/L (3.3-10.3); MYOGLOBIN SERUM 48 ng/mL (25-58)
--- NOTE | 2018-08-16 19:16 | PN ---
Physical Exam: SUBJECTIVE: Patient seen and examined at bedside, c/o back pain and buttock irritation. Denies head pain. Denies dysuria. OBJECTIVE: Vital Signs Period Temp Pulse Resp BP Sys/Hall Pulse Ox Last 24 Hr 97 F-99.0 F 62-72 20-20 123-128/62-74 97 GENERAL: A&Ox3, NAD HEAD: 4cm hematoma in the parietal region with an abrasion of the mid forehead EYES: PERRLA, EOMI, ENT: Oropharynx clear without exudates. MMM. NECK: could not assess with cervical collar on LUNGS: bibasilar crackles HEART: RRR, 2/6 systolic murmur ABDOMEN: +bs, soft, NT, ND MUSCULOSKELETAL: could not obtain access to spine for evaluation of tenderness EXTREMITIES: 2+ pulses, wwp, 2+ LE pitting edema b/l SKIN: Skin overlying buttocks broken with multiple closed ulcerations/lesions with no drainage NEUROLOGICAL: CN's, motor, and sensory systems without focal deficit. Normal speech. Gait not assessed. PSYCHIATRIC: Cooperative. Good eye contact. Appropriate mood and affect. Laboratory Results - last 24 hr 08/15/18 08/15/18 08/16/18 06:30 06:30 07:30 WBC 7.6 RBC 4.90 Hgb 14.7 Hct 45.0 MCV 91.8 MCH 29.9 MCHC 32.6 RDW 24.8 H Plt Count 116 L MPV 8.0 Absolute Neuts (auto) 5.0 Neutrophils % 66.5 Lymphocytes % 21.4 Monocytes % 11.0 H Eosinophils % 0.3 Basophils % 0.8 Nucleated RBC % 0 Sodium Potassium Chloride Carbon Dioxide Anion Gap BUN Creatinine Creat Clearance w eGFR Random Glucose Calcium Phosphorus Magnesium Myoglobin 48 Aldolase 3.8 Cortisol AM Sample 9.8 08/16/18 07:30 WBC RBC Hgb Hct MCV MCH MCHC RDW Plt Count MPV Absolute Neuts (auto) Neutrophils % Lymphocytes % Monocytes % Eosinophils % Basophils % Nucleated RBC % Sodium 130 L Potassium 4.7 Chloride 96 L Carbon Dioxide 22 Anion Gap 12 BUN 19 H Creatinine 0.7 Creat Clearance w eGFR > 60 Random Glucose 81 Calcium 8.7 Phosphorus 3.3 Magnesium 1.9 Myoglobin Aldolase Cortisol AM Sample Active Medications Generic Name Dose Route Start Last Admin Trade Name Freq PRN Reason Stop Dose Admin Acetaminophen 325 mg 08/14/18 12:47 08/14/18 17:57 Tylenol - PO 325 mg Q4H PRN Administration PAIN Acyclovir 400 mg 08/14/18 10:00 08/16/18 10:32 Zovirax - PO 400 mg BID KATHARINA Administration Brimonidine Tartrate 1 drop 08/14/18 10:00 08/16/18 10:36 Alphagan 0.2% - OU 1 drop BID KATHARINA Administration Collagenase 1 applic 08/13/18 20:45 08/16/18 10:35 Santyl - TP 1 applic DAILY KATHARINA Administration Protocol Cyclobenzaprine HCl 5 mg 08/14/18 22:00 08/16/18 10:34 Flexeril - PO 5 mg BID KATHARINA Administration Furosemide 40 mg 08/15/18 09:30 08/16/18 10:34 Lasix - PO 40 mg DAILY KATHARINA Administration Lidocaine 1 patch 08/15/18 10:00 08/16/18 10:35 Lidoderm Patch - TP 1 patch DAILY KATHARINA Administration Memantine 5 mg 08/15/18 22:00 08/16/18 10:33 Namenda - PO 5 mg BID KATHARINA Administration Miscellaneous 1 each 08/15/18 22:00 08/15/18 22:57 Lidoderm Patch Removal MC 1 each DAILY@2200 KATHARINA Administration Rivaroxaban 20 mg 08/14/18 10:00 08/16/18 10:33 Xarelto - PO 20 mg DAILY KATHARINA Administration Spironolactone 12.5 mg 08/15/18 10:00 08/16/18 10:33 Aldactone - PO 12.5 mg DAILY KATHARINA Administration Timolol Maleate 1 drop 08/14/18 10:00 08/16/18 10:35 Timoptic 0.5% OU 1 drop BID KATHARINA Administration Tobramycin/Dexamethasone 1 drop 08/14/18 06:00 08/16/18 14:00 Tobradex Ophthalmic Suspension - OD 1 drop TID KATHARINA Administration Valsartan 320 mg 08/14/18 10:00 08/16/18 10:33 Diovan - PO 320 mg DAILY KATHARINA Administration ASSESSMENT/PLAN: 87 y/o F w/ PMHx falls, HTN, Atrial Fibrillation (On Xarelto), CHF, glaucoma, hyponatremia, herpes ophthalmicus, CAD S/P 2 vessel bypass and AICD/Pacemaker placement (April 2018) p/w fall onto head, found also to be hyponatremic. #s/p mechanical fall -noted to have h/o gait abnormalities, possibly 2/2 hyponatremia or CHF -head CT negative x 2 -c-spine CT with type II odontoid fracture, interval change from February [address], chronicity unknown -Xarelto restarted given no bleed -Fall Risk precautions -Neuro checks q4h -Neurology consulted (Dr. Tsang) -Namenda 5 started -Flexeril 5 BID -Tylenol 325 PRN for pain -L-spine CT ordered (see below) -EEG -serum aldolase, myoglobin, ESR, SPEP ordered per neuro -Cardiology consulted (Dr. Stephenson/Dr. Tello following) -echo: 25% EF -ICD interrogation #Type II odontoid fracture -chronicity unknown -Pt denies any pain, full ROM of the neck -NeuroSx consulted, Dr. Malik following -per NeuroSx: CT shows possible interval worsening of Fx, MR would be better study -PPM placed by Dr. Srivastava at [facility], confirmed to be MR compatible -Dr. Malik is inclined to pursue Sx if cardiac function allows #Hyponatremia -chronic/recurrent issue (Na 126 at prior discharge) -clinical status now appears hypervolemic as per PE -nephrology consulted (Dr. Serrano) -cont restrict free water to 800 cc -elevated urine osm and Na, but may be 2/2 Lasix -FENa 2.4 -increase Lasix to 40 PO -starting spironolactone 12.5 -tsh, B12, serum Cr wnl -follow nephro reccs #Systolic CHF with Bilateral Leg edema -S/P AICD/biventircular pacemaker April 2018 -With signs of possible hepatic congestion due to elevated bili and AST -Lasix 40 PO -adding spironolactone 12.5 -home Valsartan 320 -Leg elevation -Cardiology consulted (Dr. Stephenson) -echo as per above #lumbar pain -L-spine CT: Rotatory levoscoliosis of lumbosacral spine. Multilevel chronic degenerative discogenic disease facet joint arthropathy. L2-L3. Facet joint arthropathy. Thickened partially calcified ligamentum flavum. Central spinal canal stenosis. Posterior annular calcifications. L3-L4. Facet joint arthropathy with calcified ligamentum flavum. Calcified posterior annulus. Flattened thecal sac. Central spinal canal stenosis. Bilateral neural foraminal narrowing. L4-L5. Moderately severe degenerative facet joint arthropathy with enlarged facet joints. Calcified ligamentum flavum. Degenerative anterior spondylolisthesis of L4 on L5 grade 1. Severe central spinal canal stenosis. Right neural foramina narrowing. L5-S1. Marked degenerative facet joint arthropathy with enlarged facet joints. Thickened ligamentum flavum. Disc protrusion with right paracentral posterior annular calcifications. Central spinal canal stenosis -lidocaine patches -PT consult placed, treatment is PT -Flexeril 5 BID -Tylenol 325 PRN for pain -no surgical intervention per Dr. Malik #Stage I Pressure Injury -Santyl ordered -Will need wound care follow up as outpatient #CAD s/p CABG -On Xarelto, no ASA -Follows cardiology -Cardiology consult placed #Afib -Rate controlled -Xarelto #HTN -BP stable -home Valsartan 320 -Will need to confirm home medications #Glaucoma -Continue home eye drops #Herpes Ophthalmicus -Continue Acyclovir 400mg BID -Monitor BMP #F/E/N -free water restricted, no IVF -Hyponatremia, monitor lytes -Regular diet #PPx -Xarelto 20 -No GI required #Dispo -med/surg -DNI not DNR Visit type - Emergency Visit Emergency Visit: No - New Patient This patient is new to me today: No - Critical Care Critical Care patient: No
--- NOTE | 2018-08-16 19:18 | PN ---
Teaching Attending Note Name of Resident: Deacon Meza ATTENDING PHYSICIAN STATEMENT I saw and evaluated the patient. I reviewed the resident's note and discussed the case with the resident. I agree with the resident's findings and plan as documented. SUBJECTIVE: no fever or chills . no pain , no SOB . denies any dyuria , frequency or abd pain OBJECTIVE: NAD , soft collar on neck Cv: RRR lungs: bibasilar crackles, stable form yesterday Ext : 1+ edema on LE . varicose veins and discoloration. ASSESSMENT AND PLAN: 87 y/o lady with h/o CHF, OA, AICD, A fib , HTN, CABG, CCY, and bilateral hip replacement who presented with a mechanical fall and head trauma 1- Mechanical fall: with resultant Odontoid Fx - d/w dr. Fulton . surgical treatment is the ideal treatment . MRI will help guid management. ICD information were obtained, and device is MRI compatible. will d/w radiologist the possibility of proceeding with imaging as this was declined by tractor technician will ask card help for risk stratification and medical optimization will d/w family their choices: sx Vs conservative vs collar 2-Hypotonic Hyponatremia: due to hypervolemia. improved with fluid restriction and diuresis . monitor 3- h/o systolic heart failure; cont po lasix, spironolactone and diovan 4- A fib : now in sinus . cont xarelto 5- Lower back pain: no fx. DJD . lidocaine patch PT . 6- asymptomatic pyuria : no sx. no further w/u or treatment dispo ; OC
[2018-08-16] MEDS: LIDOCAINE PATCH REMOVAL MC SCH (22:15)
--- NOTE | 2018-08-16 22:25 | PN ---
Progress Note, Physician Chief Complaint: Pt alert& orietned; lying in bed; moves all extremities on request. No chest pain, dyspnea, dizziness, or palpitations. History of Present Illness: 87-year-old white female s/p fall. Patient states was trying to get comfortable in the chair when she fell forward striking her forehead on the tiled floor. Patient states had no LOC had no complaints of dizziness or visual changes on the incident. Patient is currently on zeralto, has hx CABG 2 VD ?2016, severe systolic CHF--> ICD, and history of hypertension. As per daughter patient has irritation and mild breakdown to her buttocks which causes her to frequently move her position and fell approximately 3 weeks ago secondary to the same requiring her to go to the ER to [facility]. - Current Medication List Current Medications: Active Medications Acetaminophen (Tylenol -) 325 mg PO Q4H PRN PRN Reason: PAIN Last Admin: 08/14/18 17:57 Dose: 325 mg Acyclovir (Zovirax -) 400 mg PO BID [facility] Last Admin: 08/16/18 22:16 Dose: 400 mg Brimonidine Tartrate (Alphagan 0.2% -) 1 drop OU BID [facility] Last Admin: 08/16/18 21:48 Dose: 1 drop Collagenase (Santyl -) 1 applic TP DAILY [facility]; Protocol Last Admin: 08/16/18 10:35 Dose: 1 applic Cyclobenzaprine HCl (Flexeril -) 5 mg PO BID [facility] Last Admin: 08/16/18 21:49 Dose: 5 mg Furosemide (Lasix -) 40 mg PO DAILY [facility] Last Admin: 08/16/18 10:34 Dose: 40 mg Lidocaine (Lidoderm Patch -) 1 patch TP DAILY [facility] Last Admin: 08/16/18 10:35 Dose: 1 patch Memantine (Namenda -) 5 mg PO BID [facility] Last Admin: 08/16/18 21:48 Dose: 5 mg Miscellaneous (Lidoderm Patch Removal) 1 each MC DAILY@2200 [facility] Last Admin: 08/16/18 22:15 Dose: 1 each Rivaroxaban (Xarelto -) 20 mg PO DAILY [facility] Last Admin: 08/16/18 10:33 Dose: 20 mg Spironolactone (Aldactone -) 12.5 mg PO DAILY [facility] Last Admin: 08/16/18 10:33 Dose: 12.5 mg Timolol Maleate (Timoptic 0.5%) 1 drop OU BID [facility] Last Admin: 08/16/18 21:48 Dose: 1 drop Tobramycin/Dexamethasone (Tobradex Ophthalmic Suspension -) 1 drop OD TID [facility] Last Admin: 08/16/18 21:48 Dose: 1 drop Valsartan (Diovan -) 320 mg PO DAILY [facility] Last Admin: 08/16/18 10:33 Dose: 320 mg - Objective Vital Signs: Vital Signs Temperature 98.1 F 08/16/18 15:21 Pulse Rate 63 08/16/18 09:00 Respiratory Rate 20 08/16/18 09:00 Blood Pressure 128/74 08/16/18 09:00 O2 Sat by Pulse Oximetry (%) 97 08/15/18 21:00 Constitutional: Yes: No Distress Eyes: Yes: WNL HENT: Yes: Other Neck: Yes: Decreased ROM Cardiovascular: Yes: Murmur (3/6 systolic murmum, LSB-->axilla), S1, S2 (split) Gastrointestinal: Yes: Soft ...Rectal Exam: Yes: Deferred Genitourinary: Yes: Anuria Breast(s): Yes: WNL Musculoskeletal: Yes: Muscle Weakness Extremities: Yes: Cool Edema: No Peripheral Pulses WNL: No Peripheral Pulses: Left Doralis Pedis: 1+, Right Dorsalis Pedis: 1+ Neurological: Yes: Alert, Oriented, Weakness Psychiatric: Yes: Alert, Oriented Labs: CBC, BMP 08/16/18 07:30 08/16/18 07:30 INR, PTT INR 1.43 (0.83-1.09) H 08/13/18 15:15 Problem List - Problems (1) Acute on chronic systolic (congestive) heart failure Assessment/Plan: Pt is on valsartan, furosemide . On spironolactone 12.5 mg daily; increase as tolerated. Unless contraindication exists, start beta theresa (carvedilol 3.125 mg bid or metoprolol ER 12.5-25 mg daily). F/u electrolytes (improving hyponatremia). Is and Os, daily weight, BUN/Cr, electrolytes. Code(s): I50.23 - ACUTE ON CHRONIC SYSTOLIC (CONGESTIVE) HEART FAILURE (2) Hyponatremia Assessment/Plan: Discussed with hose finisher. Pt has been sporadic in use of furosemide; now on daily dose; f/u Na (improved today). Spinronlactone started for severe systolic CHF, diuresis. Code(s): E87.1 - HYPO-OSMOLALITY AND HYPONATREMIA (3) ICD (implantable cardioverter-defibrillator) in place Code(s): Z95.810 - PRESENCE OF AUTOMATIC (IMPLANTABLE) CARDIAC DEFIBRILLATOR (4) Status post fall Assessment/Plan: not syncopal by history wearing collar; chronic odontoid fracture. for nuerosurgical consult. Code(s): Z91.81 - HISTORY OF FALLING
[2018-08-17] MEDS: TOBRA 0.3%/DEXAMETH 0.1% OPHTHALMIC SUSP 2.5 ML BTL OD SCH ×3 (05:57→22:54)
[2018-08-17 07:47] LABS: HEMATOCRIT 45.9 % (32.4-45.2); HEMOGLOBIN 15.1 GM/dL (10.7-15.3); MCH 30.2 pg (25.7-33.7); MCHC 32.8 g/dl (32.0-36.0); MEAN CELL VOLUME 92.1 fl (80-96); MEAN PLT VOLUME 8.2 fl (7.5-11.1); PLATELET COUNT 115 K/MM3 (134-434); RBC 4.99 M/mm3 (3.60-5.2); RDW 24.3 % (11.6-15.6); WHITE BLOOD COUNT 7.7 K/mm3 (4.0-10.0)
[2018-08-17 08:34] LABS: ANION GAP 8 MMOL/L (8-16); BLOOD UREA NITROGEN 18 mg/dL (7-18); CALCIUM 8.1 mg/dL (8.5-10.1); CHLORIDE 94 mmol/L (98-107); CO2 26 mmol/L (21-32); CREATININE 0.7 mg/dL (0.55-1.3); GLUCOSE,RANDOM 81 mg/dL (74-106); MAGNESIUM 1.9 mg/dL (1.8-2.4); PHOSPHOROUS 3.4 mg/dL (2.5-4.9); POTASSIUM 4.3 mmol/L (3.5-5.1); SODIUM 128 mmol/L (136-145)
[2018-08-17] MEDS ORDERED: PT OWN MED DRAWER 7, Y5N ONE ×3 (09:44→21:46)
[2018-08-17] MEDS: VALSARTAN 160 MG TABLET (UD) PO SCH (09:48)
[2018-08-17] MEDS: CYCLOBENZAPRINE HCL 10 MG TABLET (FP) PO SCH ×2 (09:48→21:51)
[2018-08-17] MEDS: MEMANTINE HCL 5 MG TABLET (UD) PO SCH ×2 (09:50→21:51)
[2018-08-17] MEDS: SPIRONOLACTONE 25 MG TABLET (FP) PO SCH (09:50)
[2018-08-17] MEDS: FUROSEMIDE 40 MG TABLET (FP) PO SCH (09:50)
[2018-08-17] MEDS: TIMOLOL 0.5% OPHTHALMIC SOL 5 ML BOTTLE OU SCH ×2 (09:51→21:52)
[2018-08-17] MEDS: LIDOCAINE 5% TOPICAL PATCH TP SCH (09:51)
[2018-08-17] MEDS: ACYCLOVIR 400 MG TABLET PO SCH ×2 (09:52→21:52)
[2018-08-17] MEDS: RIVAROXABAN 20 MG TABLET PO SCH (09:52)
[2018-08-17] MEDS: BRIMONIDINE TARTRATE 0.2% OPHTHALMIC 5 ML BOTTLE OU SCH ×2 (09:53→21:52)
[2018-08-17] MEDS: COLLAGENASE CLOSTRIDIUM HIST. 30 GRAMS TUBE TP SCH ×2 (10:03→10:15)
--- NOTE | 2018-08-17 11:45 | PN ---
Physical Exam: SUBJECTIVE: Patient seen and examined. Now on hard neck collar. No fevers, no SOB or chest pain. Pt's AICD noted to be MRI comprtibe, documents in pt's physical chart. OBJECTIVE: Vital Signs Period Temp Pulse Resp BP Sys/Hall Pulse Ox Last 24 Hr 97.4 F-98.1 F 61-80 20-20 120-136/72-82 97 GENERAL: The patient is awake, alert, and fully oriented, in no acute respiratory or painful distress. Hard neck collar in place. HEAD: Mild forehead hyperemia from prevous fall, no obvious bleeding or laceration noted. EYES: sclera anicteric, conjunctiva clear ENT: moist mucous membranes. NECK: Hard neck collar in place LUNGS: Breath sounds equal, clear to auscultation bilaterally HEART: Regular rate and rhythm, S1, S2 , systolic murmur, rub or gallop. ABDOMEN: Soft, nontender, nondistended, normoactive bowel sounds EXTREMITIES: 2+ pulses, warm, well-perfused, no edema. NEUROLOGICAL: Cranial nerves II through XII grossly intact. Normal speech, gait not observed. PSYCH: Normal mood, normal affect. SKIN: 1cm stage 2 saccral ulcer, stage 1 gluteal hyperemia circumferential, L medil ankle healed ulcer, no heel ulcers noted CBC, BMP 08/17/18 07:15 08/17/18 07:15 Laboratory Results - last 24 hr 08/15/18 08/17/18 08/17/18 06:30 07:15 07:15 WBC 7.7 RBC 4.99 Hgb 15.1 Hct 45.9 H MCV 92.1 MCH 30.2 MCHC 32.8 RDW 24.3 H Plt Count 115 L MPV 8.2 Sodium 128 L Potassium 4.3 Chloride 94 L Carbon Dioxide 26 Anion Gap 8 BUN 18 Creatinine 0.7 Creat Clearance w eGFR > 60 Random Glucose 81 Calcium 8.1 L Phosphorus 3.4 Magnesium 1.9 Myoglobin 48 Total Protein (PEP) 5.0 L Albumin (PEP) 2.8 L Globulin 2.2 Albumin/Globulin Ratio 1.3 Beta Globulins 0.7 Aldolase 3.8 JELENA M-Quinten Not observed Ambulatory Orders Furosemide [Lasix] 20 mg PO DAILY 08/13/18 Rivaroxaban [Xarelto -] 20 mg PO DAILY 08/13/18 Valsartan 320 mg PO DAILY 08/13/18 Brimonidine Tartrate/Timolol [Combigan Eye Drops] 5 ml OD BID 08/14/18 Pantoprazole Sodium [Protonix -] 20 mg PO DAILY 08/14/18 Tobramycin Sulf/Dexamethasone [Tobradex] 1 - 2 drop TID 08/14/18 Current Medications Acetaminophen (Tylenol -) 325 mg PO Q4H PRN PRN Reason: PAIN Last Admin: 08/14/18 17:57 Dose: 325 mg Acyclovir (Zovirax -) 400 mg PO BID [facility] Last Admin: 08/17/18 09:52 Dose: 400 mg Brimonidine Tartrate (Alphagan 0.2% -) 1 drop OU BID [facility] Last Admin: 08/17/18 09:53 Dose: 1 drop Collagenase (Santyl -) 1 applic TP DAILY [facility]; Protocol Last Admin: 08/17/18 10:15 Dose: Not Given Cyclobenzaprine HCl (Flexeril -) 5 mg PO BID [facility] Last Admin: 08/17/18 09:48 Dose: 5 mg Furosemide (Lasix -) 40 mg PO DAILY [facility] Last Admin: 08/17/18 09:50 Dose: 40 mg Lidocaine (Lidoderm Patch -) 1 patch TP DAILY [facility] Last Admin: 08/17/18 09:51 Dose: 1 patch Memantine (Namenda -) 5 mg PO BID [facility] Last Admin: 08/17/18 09:50 Dose: 5 mg Miscellaneous (Lidoderm Patch Removal) 1 each MC DAILY@2200 [facility] Last Admin: 08/16/18 22:15 Dose: 1 each Rivaroxaban (Xarelto -) 20 mg PO DAILY [facility] Last Admin: 08/17/18 09:52 Dose: 20 mg Spironolactone (Aldactone -) 12.5 mg PO DAILY [facility] Last Admin: 08/17/18 09:50 Dose: 12.5 mg Timolol Maleate (Timoptic 0.5%) 1 drop OU BID [facility] Last Admin: 08/17/18 09:51 Dose: 1 drop Tobramycin/Dexamethasone (Tobradex Ophthalmic Suspension -) 1 drop OD TID [facility] Last Admin: 08/17/18 13:09 Dose: 1 drop Valsartan (Diovan -) 320 mg PO DAILY [facility] Last Admin: 08/17/18 09:48 Dose: 320 mg -L-spine CT: Rotatory levoscoliosis of lumbosacral spine. Multilevel chronic degenerative discogenic disease facet joint arthropathy. L2-L3. Facet joint arthropathy. Thickened partially calcified ligamentum flavum. Central spinal canal stenosis. Posterior annular calcifications. L3-L4. Facet joint arthropathy with calcified ligamentum flavum. Calcified posterior annulus. Flattened thecal sac. Central spinal canal stenosis. Bilateral neural foraminal narrowing. L4-L5. Moderately severe degenerative facet joint arthropathy with enlarged facet joints. Calcified ligamentum flavum. Degenerative anterior spondylolisthesis of L4 on L5 grade 1. Severe central spinal canal stenosis. Right neural foramina narrowing. L5-S1. Marked degenerative facet joint arthropathy with enlarged facet joints. Thickened ligamentum flavum. Disc protrusion with right paracentral posterior annular calcifications. Central spinal canal stenosis -c-spine CT with type II odontoid fracture, interval change from February 09 CT ECHO 08/14: LV nl size. LV systolic fn severely reduced. LA mod dilated. RV sys press elevated 40-50mmHg. Severe global hypokinesis of LV. Apical wall motion abnorm, may reflect pacemaker activation. RA severely dilated. RV sys function mod reduced. LV filling pattern nl for age. RV mildly dilated. Pacemaker lead in RV. Severe MR. ASSESSMENT/PLAN: 87 y/o F w/ PMHx falls, HTN, Atrial Fibrillation (On Xarelto), CHF, glaucoma, hyponatremia, herpes ophthalmicus, CAD S/P 2 vessel bypass and AICD/Pacemaker placement (April 2018) p/w fall onto head, found also to be hyponatremic. #s/p fall - Pt has been stable, no evidence of bleed - Likely mechanical, pt noted to have h/o gait abnormalities, possibly 2/2 hyponatremia or CHF -head CT negative x 2 -c-spine CT with type II odontoid fracture, interval change from February [address], noted to be calcified and likely chronic per NeuroSx -Cont Xarelto (no bleed) -Fall Risk precautions -Neuro checks q4h -Neurology consulted (Dr. Tsang) -Cont Namenda 5 -Flexeril 5 BID -Tylenol 325 PRN for pain -EEG -serum aldolase, myoglobin, ESR, SPEP ordered per neuro -Cardiology consulted (Dr. Stephenson/Dr. Tello following) -echo: Severely reduced EF -ICD interrogation pending #Type II odontoid fracture -Likely chronic per Dr Malik -Now on hard collar- D/w Son Jake Parkinson- Pt had used a hard collar in the past at initial time of fracture -NeuroSx consulted, Dr. Malik 3 options provided patient - 1) do nothing, 2) hard collar, 3) Sx- D/W Dr Jake Parkinson today who in turn D/W rest of his siblings and the decision is for the Pt to continue with the hard collar considering her cardiac functional status and other comorbidities including the hyponatremia noted for about a month now, discharge papers from another hospital per son documented Na as low as 123. -per NeuroSx: CT shows possible interval worsening of Fx, MR would be better study. Pt refuses to do MRI for any reason -PPM placed by Dr[facility] Srivastava at [facility], confirmed to be MR compatible -Dr. Malik is inclined to pursue Sx if cardiac function allows, but family now opting for hard collar only #Hyponatremia - Could be mutifactorial and also over a month, pt is unable to feed herself so likely has very poor intake per son Jake, who is concerned about the fluid restriction but explained the need for fluid restriction to son -chronic/recurrent issue (Na 126 at prior discharge) -clinical status now appears hypervolemic as per PE -nephrology consulted (Dr. Serrano) -cont restrict free water to 800 cc -elevated urine osm and Na, but may be 2/2 Lasix -FENa 2.4 -increase Lasix to 40 PO -starting spironolactone 12.5 -tsh, B12, serum Cr wnl -follow nephro reccs #Systolic CHF with Bilateral Leg edema -S/P AICD/biventircular pacemaker April 2018 -With signs of possible hepatic congestion due to elevated bili and AST -Lasix 40 PO -Continue spironolactone 12.5 -Continue Valsartan 320 -Leg elevation -Cardiology consulted (Dr. Stephenson) -echo as per above #lumbar pain - Saccral ulcer noted, local care -lidocaine patches -PT consult placed, treatment is PT -Flexeril 5 BID -Tylenol 325 PRN for pain -no surgical intervention per Dr. Malik #Stage I Pressure Injury -Wound clean and not necrotic -Will need wound care follow up as outpatient #CAD s/p CABG -On Xarelto, no ASA -Follows cardiology -Cardiology consult placed #Afib -Rate controlled -Xarelto #HTN -BP stable -home Valsartan 320 #Glaucoma -Continue home eye drops #Herpes Ophthalmicus -Continue Acyclovir 400mg BID -Monitor BMP #F/E/N -free water restricted, no IVF -Hyponatremia, monitor lytes -Regular diet #PPx -Xarelto 20 -No GI required #Dispo -med/surg -DNI not DNR - Family opting for Hard collar mx Visit type - Emergency Visit Emergency Visit: Yes ED Registration Date: 08/13/18 Care time: The patient presented to the Emergency Department on the above date and was hospitalized for further evaluation of their emergent condition. - New Patient This patient is new to me today: No - Critical Care Critical Care patient: No - Discharge Referral Referred to [facility] No
--- NOTE | 2018-08-17 13:08 | PN ---
Progress Note (short form) - Note Progress Note: RENAL Pt is awake and alert visibly uncomfortable has a collar on denies nausea or vomiting son states she has an EF of 15 with MR and AFib Last Vital Signs Temp Pulse Resp BP Pulse Ox 97.4 F L 61 20 120/72 97 08/17/18 06:00 08/17/18 06:00 08/16/18 23:47 08/17/18 06:00 08/17/18 09:00 lungs basilar crackles cvs s1s2 irreg abd soft ext no edema on right lower ext, +edema in left neuro a+ox3 CBC, BMP 08/17/18 07:15 08/17/18 07:15 Current Medications Generic Name Dose Route Start Last Admin Trade Name Freq PRN Reason Stop Dose Admin Acetaminophen 325 mg 08/14/18 12:47 08/14/18 17:57 Tylenol - PO 325 mg Q4H PRN Administration PAIN Acyclovir 400 mg 08/14/18 10:00 08/17/18 09:52 Zovirax - PO 400 mg BID KATHARINA Administration Brimonidine Tartrate 1 drop 08/14/18 10:00 08/17/18 09:53 Alphagan 0.2% - OU 1 drop BID KATHARINA Administration Collagenase 1 applic 08/13/18 20:45 08/17/18 10:15 Santyl - TP Not Given DAILY [facility] Protocol Cyclobenzaprine HCl 5 mg 08/14/18 22:00 08/17/18 09:48 Flexeril - PO 5 mg BID KATHARINA Administration Furosemide 40 mg 08/15/18 09:30 08/17/18 09:50 Lasix - PO 40 mg DAILY KATHARINA Administration Lidocaine 1 patch 08/15/18 10:00 08/17/18 09:51 Lidoderm Patch - TP 1 patch DAILY KATHARINA Administration Memantine 5 mg 08/15/18 22:00 08/17/18 09:50 Namenda - PO 5 mg BID KATHARINA Administration Miscellaneous 1 each 08/15/18 22:00 08/16/18 22:15 Lidoderm Patch Removal MC 1 each DAILY@2200 KATHARINA Administration Rivaroxaban 20 mg 08/14/18 10:00 08/17/18 09:52 Xarelto - PO 20 mg DAILY KATHARINA Administration Spironolactone 12.5 mg 08/15/18 10:00 08/17/18 09:50 Aldactone - PO 12.5 mg DAILY KATHARINA Administration Timolol Maleate 1 drop 08/14/18 10:00 08/17/18 09:51 Timoptic 0.5% OU 1 drop BID KATHARINA Administration Tobramycin/Dexamethasone 1 drop 08/14/18 06:00 08/17/18 05:57 Tobradex Ophthalmic Suspension - OD 1 drop TID KATHARINA Administration Valsartan 320 mg 08/14/18 10:00 08/17/18 09:48 Diovan - PO 320 mg DAILY KATHARINA Administration IMPRESSION hypoosmolar hyponatremia likely due to combination of CHF and perhaps some SIAD frequent falls cervical vertebral fx afib Plan - cont with diuretics - restrict free water - repeat labs in am -encourage eating which should help with sodium MV
--- NOTE | 2018-08-17 14:06 | PN ---
Teaching Attending Note Name of Resident: Alix Pollard ATTENDING PHYSICIAN STATEMENT I saw and evaluated the patient. I reviewed the resident's note and discussed the case with the resident. I agree with the resident's findings and plan as documented. SUBJECTIVE: no pain, no fever or chills. OBJECTIVE: NAD , hard collar on neck Cv: RRR lungs: bibasilar crackles, stable . Ext : 1+ edema on LE . varicose veins and discoloration. BAd: slight discomfort in suprapubic area ( pt needs to urinate ) ASSESSMENT AND PLAN: 87 y/o lady with h/o CHF, OA, AICD, A fib , HTN, CABG, CCY, and bilateral hip replacement who presented with a mechanical fall and head trauma 1- Mechanical fall: 2- Odontoid Fx - patient 's options: Sx vs. permanent C-collar Vs. temporary C-collar then Sx were d/w her. - She will think about it - will d/w her son, dr. Parkinson - will ask card for risk stratification. - patient refuses MRI due to severe claustrophobia. declines med prep 2-Hypotonic Hyponatremia: due to chronic CHF, and possibly SIADH as it worsened again despite fluid restriction and diuresis monitor 3- h/o systolic heart failure; cont po lasix, spironolactone and diovan 4- A fib : now in sinus . cont xarelto 5- Lower back pain: no fx. DJD . lidocaine patch PT . Dispo ; HLOC
[2018-08-17] MEDS: METOPROLOL TARTRATE 25 MG TABLET (FP) PO SCH (18:48)
[2018-08-17] MEDS: LIDOCAINE PATCH REMOVAL MC SCH (21:53)
[2018-08-18] MEDS: TOBRA 0.3%/DEXAMETH 0.1% OPHTHALMIC SUSP 2.5 ML BTL OD SCH ×3 (06:04→21:08)
[2018-08-18 08:00] LABS: BASO % 0.7 % (0-2.0); EOS % 0.3 % (0-4.5); HEMATOCRIT 43.6 % (32.4-45.2); HEMOGLOBIN 14.5 GM/dL (10.7-15.3); LYMPH % 21.3 % (8-40); MCH 30.6 pg (25.7-33.7); MCHC 33.2 g/dl (32.0-36.0); MEAN CELL VOLUME 92.1 fl (80-96); MEAN PLT VOLUME 8.5 fl (7.5-11.1); MONO % 12.9 % (3.8-10.2); NEUT % 64.8 % (42.8-82.8); PLATELET COUNT 118 K/MM3 (134-434); RBC 4.73 M/mm3 (3.60-5.2); RDW 24.5 % (11.6-15.6)
[2018-08-18 08:18] LABS: ANION GAP 7 MMOL/L (8-16); BLOOD UREA NITROGEN 17 mg/dL (7-18); CALCIUM 7.9 mg/dL (8.5-10.1); CHLORIDE 97 mmol/L (98-107); CO2 25 mmol/L (21-32); CREATININE 0.5 mg/dL (0.55-1.3); GLUCOSE,RANDOM 90 mg/dL (74-106); MAGNESIUM 1.7 mg/dL (1.8-2.4); PHOSPHOROUS 3.6 mg/dL (2.5-4.9); POTASSIUM 4.3 mmol/L (3.5-5.1); SODIUM 129 mmol/L (136-145)
--- NOTE | 2018-08-18 08:59 | PN ---
Progress Note, Physician History of Present Illness: ID: Ms. 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 Patient with no acute events overnight. Denies any lh, dizziness, chest pain, palpitations, orthopnea or PND. - Current Medication List Current Medications: Active Medications Acetaminophen (Tylenol -) 325 mg PO Q4H PRN PRN Reason: PAIN Last Admin: 08/14/18 17:57 Dose: 325 mg Acyclovir (Zovirax -) 400 mg PO BID [facility] Last Admin: 08/17/18 21:52 Dose: 400 mg Brimonidine Tartrate (Alphagan 0.2% -) 1 drop OU BID [facility] Last Admin: 08/17/18 21:52 Dose: 1 drop Cyclobenzaprine HCl (Flexeril -) 5 mg PO BID [facility] Last Admin: 08/17/18 21:51 Dose: 5 mg Furosemide (Lasix -) 40 mg PO DAILY [facility] Last Admin: 08/17/18 09:50 Dose: 40 mg Lidocaine (Lidoderm Patch -) 1 patch TP DAILY [facility] Last Admin: 08/17/18 09:51 Dose: 1 patch Memantine (Namenda -) 5 mg PO BID [facility] Last Admin: 08/17/18 21:51 Dose: 5 mg Metoprolol Tartrate (Lopressor -) 12.5 mg PO BID [facility] Last Admin: 08/17/18 18:48 Dose: 12.5 mg Miscellaneous (Lidoderm Patch Removal) 1 each MC DAILY@2200 [facility] Last Admin: 08/17/18 21:53 Dose: 1 each Rivaroxaban (Xarelto -) 20 mg PO DAILY [facility] Last Admin: 08/17/18 09:52 Dose: 20 mg Spironolactone (Aldactone -) 12.5 mg PO DAILY [facility] Last Admin: 08/17/18 09:50 Dose: 12.5 mg Timolol Maleate (Timoptic 0.5%) 1 drop OU BID [facility] Last Admin: 08/17/18 21:52 Dose: 1 drop Tobramycin/Dexamethasone (Tobradex Ophthalmic Suspension -) 1 drop OD TID [facility] Last Admin: 08/18/18 06:04 Dose: 1 drop Valsartan (Diovan -) 320 mg PO DAILY [facility] Last Admin: 08/17/18 09:48 Dose: 320 mg - Objective Vital Signs: Vital Signs Temperature 97.5 F L 08/18/18 05:30 Pulse Rate 60 08/18/18 05:30 Respiratory Rate 12 08/18/18 05:30 Blood Pressure 100/53 L 08/18/18 05:30 O2 Sat by Pulse Oximetry (%) 97 08/17/18 22:00 Constitutional: Yes: Other (Elderly female sitting upright in NAD) Cardiovascular: Yes: JVD, S1, S2, S3, Other (JVP could not be assessed as trach collar in place.) Respiratory: Yes: WNL, Other (Decreased breath sounds at the bases) Edema: LLE: 2+, RLE: 1+ Labs: CBC, BMP 08/18/18 06:30 08/18/18 06:30 INR, PTT INR 1.43 (0.83-1.09) H 08/13/18 15:15 Assessment/Plan Ms. 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 With regards to pre-operative risk stratification patient to undergo intermediate-high risk surgery with a revised cardiac index score of 3 which correlates an 11% risk of cardiac event. Patient with multiple cardiac issues including heart failure with significant valvular dysfunction (BiV failure, severe MR/TR). Patient is not currently optimized from cardiovascular perspective- we will continue to optimize heart failure regimen. #AHA/ACC Stage C Heart Failure Etiology: unclear Workup: --ECG:-- V-paced --Echocardiogram: severely reduced LV dysfunction, moderately reduced RV dysfunction with severe TR and MR --please obtain last all cardiology records (including cardiac cath, echocardiograms, and CABG anatomy if available) --please obtain EP records for pacemaker and BiV implantation for our records and to evaluate whether pacemaker lead could be causing worsening of TR and RV dysfunction --BNP 27, 529 Treatment: --continue valsartan 320mg --continue metoprolol tartrate 12.5mg BID --continue spirinolactone 12.5mg qday --increase lasix from 40 to 60mg qday --strict i/o's, daily weights, chemistry panel BID (keep K+>4, Mg>2) #CAD s/p CABG: --continue heart failure regimen as above --please obtain cardiology records to see why not on aspirin therapy #Atrial fibrillation --continue metoprolol tartrate 12.5mg BID --continue rivaroxaban We will continue to follow closely. Please do not hesitate to reach out if any questions or concerns. Greg Capellan MD
[2018-08-18] MEDS: RIVAROXABAN 20 MG TABLET PO SCH (10:09)
[2018-08-18] MEDS: CYCLOBENZAPRINE HCL 10 MG TABLET (FP) PO SCH ×2 (10:11→21:07)
[2018-08-18] MEDS: MEMANTINE HCL 5 MG TABLET (UD) PO SCH ×2 (10:11→21:07)
[2018-08-18] MEDS: SPIRONOLACTONE 25 MG TABLET (FP) PO SCH (10:12)
[2018-08-18] MEDS: ACYCLOVIR 400 MG TABLET PO SCH ×2 (10:14→21:08)
[2018-08-18] MEDS: VALSARTAN 160 MG TABLET (UD) PO SCH (10:14)
[2018-08-18] MEDS: METOPROLOL TARTRATE 25 MG TABLET (FP) PO SCH ×2 (10:14→21:09)
[2018-08-18] MEDS ORDERED: PT OWN MED DRAWER 7, Y5N ONE ×2 (10:57→20:53)
[2018-08-18] MEDS: FUROSEMIDE 40 MG TABLET (FP) PO SCH ×2 (10:58→11:10)
--- NOTE | 2018-08-18 11:04 | PN ---
Progress Note (short form) - Note Progress Note: RENAL Pt is awake and alert c/o decreased vision in right eye which she has had before has a collar on denies nausea or vomiting nephew is present Last Vital Signs Temp Pulse Resp BP Pulse Ox 97.7 F 60 16 111/67 97 08/18/18 08:56 08/18/18 08:56 08/18/18 08:56 08/18/18 08:56 08/17/18 22:00 lungs basilar crackles cvs s1s2 irreg abd soft ext has bilat edema neuro a+ox3 CBC, BMP 08/18/18 06:30 08/18/18 06:30 Current Medications Generic Name Dose Route Start Last Admin Trade Name Freq PRN Reason Stop Dose Admin Acetaminophen 325 mg 08/14/18 12:47 08/14/18 17:57 Tylenol - PO 325 mg Q4H PRN Administration PAIN Acyclovir 400 mg 08/14/18 10:00 08/17/18 21:52 Zovirax - PO 400 mg BID KATHARINA Administration Brimonidine Tartrate 1 drop 08/14/18 10:00 08/17/18 21:52 Alphagan 0.2% - OU 1 drop BID KATHARINA Administration Cyclobenzaprine HCl 5 mg 08/14/18 22:00 08/17/18 21:51 Flexeril - PO 5 mg BID KATHARINA Administration Furosemide 60 mg 08/18/18 10:50 Lasix - PO DAILY KATHARINA Lidocaine 1 patch 08/15/18 10:00 08/17/18 09:51 Lidoderm Patch - TP 1 patch DAILY KATHARINA Administration Memantine 5 mg 08/15/18 22:00 08/17/18 21:51 Namenda - PO 5 mg BID KATHARINA Administration Metoprolol Tartrate 12.5 mg 08/17/18 18:45 08/17/18 18:48 Lopressor - PO 12.5 mg BID KATHARINA Administration Miscellaneous 1 each 08/15/18 22:00 08/17/18 21:53 Lidoderm Patch Removal MC 1 each DAILY@2200 KATHARINA Administration Rivaroxaban 20 mg 08/14/18 10:00 08/17/18 09:52 Xarelto - PO 20 mg DAILY KATHARINA Administration Spironolactone 12.5 mg 08/15/18 10:00 08/17/18 09:50 Aldactone - PO 12.5 mg DAILY KATHARINA Administration Timolol Maleate 1 drop 08/14/18 10:00 08/17/18 21:52 Timoptic 0.5% OU 1 drop BID KATHARINA Administration Tobramycin/Dexamethasone 1 drop 08/14/18 06:00 08/18/18 06:04 Tobradex Ophthalmic Suspension - OD 1 drop TID KATHARINA Administration Valsartan 320 mg 08/14/18 10:00 08/17/18 09:48 Diovan - PO 320 mg DAILY KATHARINA Administration IMPRESSION hypoosmolar hyponatremia likely due to combination of CHF and perhaps some SIAD frequent falls cervical vertebral fx afib chf TR/MR Plan - cont with diuretics - restrict free water - repeat labs in am - encourage eating which should help with sodium - meds being adjusted by cardiology for optimization - Son for now is hesitant about having surgery MV
[2018-08-18] MEDS: LIDOCAINE 5% TOPICAL PATCH TP SCH (11:20)
[2018-08-18] MEDS: BRIMONIDINE TARTRATE 0.2% OPHTHALMIC 5 ML BOTTLE OU SCH ×2 (11:20→21:08)
[2018-08-18] MEDS: TIMOLOL 0.5% OPHTHALMIC SOL 5 ML BOTTLE OU SCH ×2 (11:20→21:09)
--- NOTE | 2018-08-18 14:45 | PN ---
Progress Note (short form) - Note Progress Note: Subjective: No fever or chills . No pain , No SOB Objective: Vital Signs: Last Vital Signs Temp Pulse Resp BP Pulse Ox 97.7 F 60 16 111/67 97 08/18/18 08:56 08/18/18 08:56 08/18/18 08:56 08/18/18 08:56 08/18/18 09:00 Laboratory Results - last 24 hr 08/18/18 08/18/18 06:30 06:30 WBC 7.0 RBC 4.73 Hgb 14.5 Hct 43.6 MCV 92.1 MCH 30.6 MCHC 33.2 RDW 24.5 H Plt Count 118 L MPV 8.5 Absolute Neuts (auto) 4.5 Neutrophils % 64.8 Lymphocytes % 21.3 Monocytes % 12.9 H Eosinophils % 0.3 Basophils % 0.7 Nucleated RBC % 0 Sodium 129 L Potassium 4.3 Chloride 97 L Carbon Dioxide 25 Anion Gap 7 L BUN 17 Creatinine 0.5 L Creat Clearance w eGFR > 60 Random Glucose 90 Calcium 7.9 L Phosphorus 3.6 Magnesium 1.7 L Physical Exam: OBJECTIVE: NAD , hard collar on neck Cv: RRR lungs: minimal bibasilar crackles, stable . Ext : 1+ edema on LE . varicose veins and discoloration. ASSESSMENT AND PLAN: 87 y/o lady with h/o CHF, OA, AICD, A fib , HTN, CABG, CCY, and bilateral hip replacement who presented with a mechanical fall and head trauma 1- Mechanical fall: 2- Odontoid Fx - d/w family yesterday. No surgical intervention is desired . family and patient opted for permanent C collar - patient refuses MRI due to severe claustrophobia. 2-Hypotonic Hyponatremia: due to chronic CHF, and possibly SIADH as it worsened again despite fluid restriction and diuresis monitor 3- h/o systolic heart failure; Lasix increased to 60 . moinitor . will ask her training and development project leader about ASA cont spironolactone and diovan 4- A fib : now in sinus . cont xarelto 5- Lower back pain: no fx. DJD . lidocaine patch PT . Dispo ; Possible dc tomorrow . will need rehab Visit type - Emergency Visit Emergency Visit: Yes ED Registration Date: 08/13/18 Care time: The patient presented to the Emergency Department on the above date and was hospitalized for further evaluation of their emergent condition. - New Patient This patient is new to me today: No - Critical Care Critical Care patient: No
[2018-08-18] MEDS: LIDOCAINE PATCH REMOVAL MC SCH (21:09)
[2018-08-19 04:09] VITALS: PULSE 60
[2018-08-19] MEDS: TOBRA 0.3%/DEXAMETH 0.1% OPHTHALMIC SUSP 2.5 ML BTL OD SCH ×2 (05:59→13:55)
[2018-08-19 06:56] VITALS: TEMP 98.4
[2018-08-19 07:59] LABS: ANION GAP 8 MMOL/L (8-16); BLOOD UREA NITROGEN 18 mg/dL (7-18); CALCIUM 8.3 mg/dL (8.5-10.1); CHLORIDE 94 mmol/L (98-107); CO2 26 mmol/L (21-32); CREATININE 0.7 mg/dL (0.55-1.3); GLUCOSE,RANDOM 87 mg/dL (74-106); POTASSIUM 4.2 mmol/L (3.5-5.1); SODIUM 128 mmol/L (136-145)
[2018-08-19] MEDS ORDERED: MAGNESIUM OXIDE 400 MG TABLET (FP) PO ONE ×2 (09:45→12:12)
[2018-08-19 10:40] LABS: MAGNESIUM 1.7 mg/dL (1.8-2.4); PHOSPHOROUS 3.9 mg/dL (2.5-4.9)
[2018-08-19] MEDS: LIDOCAINE 5% TOPICAL PATCH TP SCH (10:52)
[2018-08-19] MEDS: FUROSEMIDE 40 MG TABLET (FP) PO SCH (10:53)
[2018-08-19] MEDS: VALSARTAN 160 MG TABLET (UD) PO SCH (10:53)
[2018-08-19] MEDS: MEMANTINE HCL 5 MG TABLET (UD) PO SCH (10:54)
[2018-08-19] MEDS: METOPROLOL TARTRATE 25 MG TABLET (FP) PO SCH (10:54)
[2018-08-19] MEDS: RIVAROXABAN 20 MG TABLET PO SCH (10:55)
[2018-08-19] MEDS: CYCLOBENZAPRINE HCL 10 MG TABLET (FP) PO SCH (10:55)
[2018-08-19] MEDS: SPIRONOLACTONE 25 MG TABLET (FP) PO SCH (10:56)
[2018-08-19] MEDS: TIMOLOL 0.5% OPHTHALMIC SOL 5 ML BOTTLE OU SCH (10:56)
[2018-08-19] MEDS: BRIMONIDINE TARTRATE 0.2% OPHTHALMIC 5 ML BOTTLE OU SCH (10:56)
[2018-08-19] MEDS: ACYCLOVIR 400 MG TABLET PO SCH (11:00)
[2018-08-19 12:15] VITALS: BP 113/58
--- NOTE | 2018-08-19 13:07 | PN ---
Progress Note, Physician History of Present Illness: 87-year-old female sent over from status post fall. Patient states was trying to get comfortable in the chair when she fell forward striking her forehead on the tiled floor. Patient states had no LOC had no complaints of dizziness or visual changes on the incident. Patient is currently on xaralto, has a defibrillator, and history of hypertension. As per daughter patient has irritation and mild breakdown to her buttocks which causes her to frequently move her position and fell approximately 3 weeks ago secondary to the same requiring her to go to the ER to [facility]. nl ef until2017 when PPM was placed for pause. 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 - Current Medication List Current Medications: Active Medications Acetaminophen (Tylenol -) 325 mg PO Q4H PRN PRN Reason: PAIN Last Admin: 08/14/18 17:57 Dose: 325 mg Acyclovir (Zovirax -) 400 mg PO BID [facility] Last Admin: 08/18/18 21:08 Dose: 400 mg Brimonidine Tartrate (Alphagan 0.2% -) 1 drop OU BID [facility] Last Admin: 08/19/18 10:56 Dose: 1 drop Cyclobenzaprine HCl (Flexeril -) 5 mg PO BID [facility] Last Admin: 08/19/18 10:55 Dose: 5 mg Furosemide (Lasix -) 60 mg PO DAILY [facility] Last Admin: 08/19/18 10:53 Dose: 60 mg Lidocaine (Lidoderm Patch -) 1 patch TP DAILY [facility] Last Admin: 08/19/18 10:52 Dose: 1 patch Memantine (Namenda -) 5 mg PO BID [facility] Last Admin: 08/19/18 10:54 Dose: 5 mg Metoprolol Tartrate (Lopressor -) 12.5 mg PO BID [facility] Last Admin: 08/19/18 10:54 Dose: 12.5 mg Miscellaneous (Lidoderm Patch Removal) 1 each MC DAILY@2200 [facility] Last Admin: 08/18/18 21:09 Dose: 1 each Rivaroxaban (Xarelto -) 20 mg PO DAILY [facility] Last Admin: 08/19/18 10:55 Dose: 20 mg Spironolactone (Aldactone -) 12.5 mg PO DAILY [facility] Last Admin: 08/19/18 10:56 Dose: 12.5 mg Timolol Maleate (Timoptic 0.5%) 1 drop OU BID [facility] Last Admin: 08/19/18 10:56 Dose: 1 drop Tobramycin/Dexamethasone (Tobradex Ophthalmic Suspension -) 1 drop OD TID [facility] Last Admin: 08/19/18 05:59 Dose: 1 drop Valsartan (Diovan -) 320 mg PO DAILY [facility] Last Admin: 08/19/18 10:53 Dose: 320 mg - Objective Vital Signs: Vital Signs Temperature 98.4 F 08/19/18 06:55 Pulse Rate 60 08/19/18 12:00 Respiratory Rate 18 08/19/18 12:00 Blood Pressure 113/58 L 08/19/18 12:00 O2 Sat by Pulse Oximetry (%) 97 08/18/18 22:00 Eyes: Yes: WNL, Conjunctiva Clear, EOM Intact HENT: Yes: WNL, Atraumatic, Normocephalic Neck: Yes: WNL, Supple, Trachea Midline Cardiovascular: Yes: WNL, Regular Rate and Rhythm, Murmur, S1, S2 Respiratory: Yes: WNL, Regular, CTA Bilaterally Gastrointestinal: Yes: WNL, Normal Bowel Sounds Genitourinary: Yes: WNL Musculoskeletal: Yes: WNL Extremities: Yes: WNL Edema: No Integumentary: Yes: WNL Neurological: Yes: WNL, Alert, Oriented ...Motor Strength: WNL Psychiatric: Yes: WNL Labs: CBC, BMP 08/18/18 06:30 08/19/18 06:35 INR, PTT INR 1.43 (0.83-1.09) H 08/13/18 15:15 Problem List - Problems (1) Anticoagulated Code(s): Z79.01 - INTERMEDIATE (CURRENT) USE OF ANTICOAGULANTS (2) Closed head injury Code(s): S09.90XA - UNSPECIFIED INJURY OF HEAD, INITIAL ENCOUNTER (3) Dens fracture Code(s): S12.100A - UNSP DISP FX OF SECOND CERVICAL VERTEBRA, INIT FOR CLOS FX (4) Hyponatremia Code(s): E87.1 - HYPO-OSMOLALITY AND HYPONATREMIA (5) Fall Code(s): W19.XXXA - UNSPECIFIED FALL, INITIAL ENCOUNTER Qualifiers: Encounter type: initial encounter Qualified Code(s): W19.XXXA - Unspecified fall, initial encounter Assessment/Plan - Problems (1) Acute on chronic systolic (congestive) heart failure Assessment/Plan: Pt is on valsartan, furosemide . On spironolactone 12.5 mg daily; increase as tolerated. Unless contraindication exists, start beta theresa (carvedilol 3.125 mg bid or metoprolol ER 12.5-25 mg daily). F/u electrolytes (improving hyponatremia). Is and Os, daily weight, BUN/Cr, electrolytes. Code(s): I50.23 - ACUTE ON CHRONIC SYSTOLIC (CONGESTIVE) HEART FAILURE (2) Hyponatremia Assessment/Plan: Discussed with coal cager. Pt has been sporadic in use of furosemide; now on daily dose; f/u Na (improved today). Spinronlactone started for severe systolic CHF, diuresis. Code(s): E87.1 - HYPO-OSMOLALITY AND HYPONATREMIA (3) ICD (implantable cardioverter-defibrillator) in place Code(s): Z95.810 - PRESENCE OF AUTOMATIC (IMPLANTABLE) CARDIAC DEFIBRILLATOR (4) Status post fall Assessment/Plan: not syncopal by history wearing collar; chronic odontoid fracture. for nuerosurgical consult. Code(s): Z91.81 - HISTORY OF FALLING
--- NOTE | 2018-08-19 13:27 | PN ---
Teaching Attending Note Name of Resident: Alix Pollard ATTENDING PHYSICIAN STATEMENT I saw and evaluated the patient. I reviewed the resident's note and discussed the case with the resident. I agree with the resident's findings and plan as documented. SUBJECTIVE: No fever or chills . No abd pain,no neck pain, no weakness, or tingling/ numbness OBJECTIVE: NAD , hard collar on neck Cv: RRR lungs: no crackles , decreased breath sounds at L base Ext : 1+ edema on LE. varicose veins and discoloration. ASSESSMENT AND PLAN: 87 y/o lady with h/o CHF, OA, AICD, A fib , HTN, CABG, CCY, and bilateral hip replacement who presented with a mechanical fall and head trauma 1- Mechanical fall: 2- Odontoid Fx - medical management with collar. No sx 2-Hypotonic Hyponatremia: due to chronic CHF, and possibly SIADH as it worsened again despite fluid restriction and diuresis monitor 3- h/o systolic heart failure; cont 60 mg at dc . follow with her own fabrication and layout craftsman after dc cont spironolactone and diovan 4- A fib : now in sinus. cont xarelto 5- Lower back pain: no fx. DJD . lidocaine patch PT . Dispo ; dc to rehab today
--- NOTE | 2018-08-19 14:07 | DS ---
Physical Exam: SUBJECTIVE: Patient seen and examined. No chest pain, no SOB, no dizziness. Has been compliant with the hard collar and is willing to go to rehabilitation. OBJECTIVE: Vital Signs Period Temp Pulse Resp BP Sys/Hall Pulse Ox Last 24 Hr 98.1 F-98.5 F 59-60 18-20 112-131/58-77 97 PHYSICAL EXAM GENERAL: The patient is awake, alert, and fully oriented, in no acute distress. Hard neck collar in place. HEAD: Healing forehead bruise EYES: extraocular movements intact, sclera anicteric, conjunctiva clear. ENT: moist mucous membranes. NECK: Hard neck collar in place LUNGS: Breath sounds reduced lung bases. no wheezes, no crackles, no accessory muscle use. HEART: S1, S2, systolic murmur ABDOMEN: Soft, nontender, nondistended, normoactive bowel sounds, EXTREMITIES: 2+ pulses, warm, well-perfused, b/l 1+ edema up to mid malave. NEUROLOGICAL: AAOx3. Normal speech, PSYCH: Normal mood, normal affect. SKIN: Sacral decubitus ulcer 1cm stage 2 clean and dry, with surrounding gluteal stage one decubitus ulcer (erythema) B/L feet padding. Plaster over L malave and medial ankle healing ulcer on L. CBC, BMP 08/18/18 06:30 08/19/18 06:35 LABS Laboratory Results - last 24 hr 08/19/18 06:35 Sodium 128 L Potassium 4.2 Chloride 94 L Carbon Dioxide 26 Anion Gap 8 BUN 18 Creatinine 0.7 Creat Clearance w eGFR > 60 Random Glucose 87 Calcium 8.3 L Phosphorus 3.9 Magnesium 1.7 L -L-spine CT jul 2018 : Rotatory levoscoliosis of lumbosacral spine. Multilevel chronic degenerative discogenic disease facet joint arthropathy. L2-L3. Facet joint arthropathy. Thickened partially calcified ligamentum flavum. Central spinal canal stenosis. Posterior annular calcifications. L3-L4. Facet joint arthropathy with calcified ligamentum flavum. Calcified posterior annulus. Flattened thecal sac. Central spinal canal stenosis. Bilateral neural foraminal narrowing. L4-L5. Moderately severe degenerative facet joint arthropathy with enlarged facet joints. Calcified ligamentum flavum. Degenerative anterior spondylolisthesis of L4 on L5 grade 1. Severe central spinal canal stenosis. Right neural foramina narrowing. L5-S1. Marked degenerative facet joint arthropathy with enlarged facet joints. Thickened ligamentum flavum. Disc protrusion with right paracentral posterior annular calcifications. Central spinal canal stenosis -c-spine CT Jul 2018 with type II odontoid fracture, interval change from February 09 CT ECHO 08/14: LV nl size. LV systolic fn severely reduced. LA mod dilated. RV sys press elevated 40-50mmHg. Severe global hypokinesis of LV. Apical wall motion abnorm, may reflect pacemaker activation. RA severely dilated. RV sys function mod reduced. LV filling pattern nl for age. RV mildly dilated. Pacemaker lead in RV. Severe MR. HOSPITAL COURSE: Date of Admission:08/13/18 Date of Discharge: 08/19/18 Prehospital course: 87 y/o F w/ PMHx falls, HTN, Atrial Fibrillation (On Xarelto), CHF, glaucoma, hyponatremia, herpes ophthalmicus, CAD S/P 2 vessel bypass and AICD/Pacemaker placement (April 2018) p/w fall onto head, found also to be hyponatremic and with worsening of a previous odontoid fracture after the recent fall. Hospital course: Mechanical fall: CT head showed no evidence of bleed although the patient had been on anticoagulation with xarelto. Pt had been noted to have some balance issues prior to presentation, and is being sent to a rehab facility for physical therapy Type II Odontoid Fracture Pt had an odntoid fracture from a previous fall, CT January 2017 that worsened with recent fall. Dr Fulton was on the case and offered 3 options for management: - 1) do nothing, 2) hard collar, 3) Surgery - Patient and family elected medical management with collar and no surgery Hypotonic Hyponatremia: Likely due to chronic CHF, and possibly SIADH due to worsening hyponatremia despite fluid restriction and diuresis. Pt is being discharged to a SNF, to follow up BNPs and continue fluid restriction (cont restrict free water to 800 cc) and diuresis. monitor systolic heart failure; S/P AICD/biventircular pacemaker April 2018. Patient is being discharge on lasix 60 mg changed from home dose of 20mg . To follow with patient's outpatient correction officer head following discharge She was started on spironolactone and metoprolol, to continue diovan A fib : Patient is now in sinus rhythm, but to continue her xarelto dose Chronic Lower back pain: No evidence of fractures, showing degenerative joint disease, patient is being discharged on lidocaine patch to [facility] Stage I Pressure Injury Wound clean and not necrotic Will need wound care follow up as outpatient HTN Continue home Valsartan 320 Glaucoma Continue home eye drops Herpes Ophthalmicus Continue Acyclovir 400mg BID Monitor BMP Code status: DNI not DNR Minutes to complete discharge: 40 Discharge Summary Reason For Visit: CLOSED HEAD INJURY; ODONOTOID FRACTURE Current Active Problems Acute on chronic systolic (congestive) heart failure (Acute) Anticoagulated (Acute) Closed head injury (Acute) Dens fracture (Acute) Status post fall (Acute) Hyponatremia (Chronic) ICD (implantable cardioverter-defibrillator) in place (Chronic) Condition: Improved - Instructions Diet, Activity, Other Instructions: You came in after a fall. You were noted to have a low sodium level that has improved with restricting you free water intake and use of the water pill (lasix ). You were also noted to have worsening of the previous fracture at the back of your neck (cervical odontoid) that could become more unstable if nothing is done. You elected not to have surgery at this time. You have agreed to keep the hard neck collar on to prevent worsening of the odontoid fracture. Keep the hard neck collar on at all times to avoid worsening of the fracture of your neck. We are sending you for rehabilitation to help strengthen you by physical therapy We are giving you a lidocaine patch to help with pain Continue wound care of the ulcers on your back/saccrum and feet Medication change 1. We have increased your water pills (lasix) to 60mg from 20mg to take daily You will need a blood check (BMP) in a week to check your electrolytes- Mg and sodium especially 2. We have started you on lopressor 12.5mg twice daily 3. We have started you on spironolactone 12.5mg daily 4. We have discontinued protonix while here, you may discuss with your primary care doctor about restarting, if you have symptoms 5. We are sending you on lidocaine patch Please continue with your eye drops as prescribed Continue acyclovir as prescribed Continue your blood thinner xarelto as prescribed Follow up with your out patient correction officer head within one week, as your heart function is significantly impaired Follow up with your primary care physician in one week Be careful of new falls. Any further falls could worsen the old fracture in your neck and put you at risk of or disability. If you notice confusion, increased weakness in your arms or legs , tingling sensations or severe neck pain despite pain medications, please return to the nearest emergency room. daily weights, restrict free water intake to 800 cc /24 hr Referrals: Cole Malik MD, [facility] [Staff Physician] - 2 Weeks Micky Miller [Primary Care Provider] - 1 Week Disposition: [facility]ILITY - Home Medications Comprehensive Discharge Medication List: Ambulatory Orders Rivaroxaban [Xarelto -] 20 mg PO DAILY 08/13/18 Valsartan 320 mg PO DAILY 08/13/18 Brimonidine Tartrate/Timolol [Combigan 0.2%-0.5% Eye Drops] 5 ml OD BID Tobramycin Sulf/Dexamethasone [Tobradex Ophthalmic Suspension -] 1 - 2 drop TID 08/14/18 Acyclovir [Zovirax -] 400 mg PO BID tablet 08/19/18 Furosemide [Lasix -] 60 mg PO DAILY tablet 08/19/18 Lidocaine 5% Patch [Lidoderm -] 1 patch TP DAILY patch 08/19/18 Metoprolol Tartrate [Lopressor -] 12.5 mg PO BID tablet 08/19/18 Spironolactone [Aldactone -] 12.5 mg PO DAILY tablet 08/19/18 This patient is new to me today: No Emergency Visit: Yes ED Registration Date: 08/13/18 Care time: The patient presented to the Emergency Department on the above date and was hospitalized for further evaluation of their emergent condition. Critical Care patient: No - Discharge Referral Referred to [facility] Med P.C.: No
--- NOTE | 2018-08-19 14:37 | PN ---
Progress Note, Physician History of Present Illness: Pt seen and examined at bedside. She is awake and alert. She denies shortness of breath. She has poor PO intake. - Current Medication List Current Medications: Active Medications Acetaminophen (Tylenol -) 325 mg PO Q4H PRN PRN Reason: PAIN Last Admin: 08/14/18 17:57 Dose: 325 mg Acyclovir (Zovirax -) 400 mg PO BID [facility] Last Admin: 08/19/18 11:00 Dose: 400 mg Brimonidine Tartrate (Alphagan 0.2% -) 1 drop OU BID [facility] Last Admin: 08/19/18 10:56 Dose: 1 drop Cyclobenzaprine HCl (Flexeril -) 5 mg PO BID [facility] Last Admin: 08/19/18 10:55 Dose: 5 mg Furosemide (Lasix -) 60 mg PO DAILY [facility] Last Admin: 08/19/18 10:53 Dose: 60 mg Lidocaine (Lidoderm Patch -) 1 patch TP DAILY [facility] Last Admin: 08/19/18 10:52 Dose: 1 patch Memantine (Namenda -) 5 mg PO BID [facility] Last Admin: 08/19/18 10:54 Dose: 5 mg Metoprolol Tartrate (Lopressor -) 12.5 mg PO BID [facility] Last Admin: 08/19/18 10:54 Dose: 12.5 mg Miscellaneous (Lidoderm Patch Removal) 1 each [facility] DAILY@2200 [facility] Last Admin: 08/18/18 21:09 Dose: 1 each Rivaroxaban (Xarelto -) 20 mg PO DAILY [facility] Last Admin: 08/19/18 10:55 Dose: 20 mg Spironolactone (Aldactone -) 12.5 mg PO DAILY [facility] Last Admin: 08/19/18 10:56 Dose: 12.5 mg Timolol Maleate (Timoptic 0.5%) 1 drop OU BID [facility] Last Admin: 08/19/18 10:56 Dose: 1 drop Tobramycin/Dexamethasone (Tobradex Ophthalmic Suspension -) 1 drop OD TID [facility] Last Admin: 08/19/18 13:55 Dose: 1 drop Valsartan (Diovan -) 320 mg PO DAILY [facility] Last Admin: 08/19/18 10:53 Dose: 320 mg - Objective Vital Signs: Vital Signs Temperature 98.4 F 08/19/18 06:55 Pulse Rate 60 08/19/18 12:00 Respiratory Rate 18 08/19/18 12:00 Blood Pressure 113/58 L 08/19/18 12:00 O2 Sat by Pulse Oximetry (%) 97 08/18/18 22:00 Constitutional: Yes: Calm Eyes: Yes: Conjunctiva Clear HENT: Yes: Atraumatic Cardiovascular: Yes: S1, S2 Respiratory: Yes: CTA Bilaterally Gastrointestinal: Yes: WNL Genitourinary: Yes: WNL Musculoskeletal: Yes: WNL Edema: Yes Edema: LLE: Trace, RLE: Trace Integumentary: Yes: Venous Stasis Changes Neurological: Yes: Oriented Psychiatric: Yes: Oriented Labs: CBC, BMP 08/18/18 06:30 08/19/18 06:35 INR, PTT INR 1.43 (0.83-1.09) H 08/13/18 15:15 Problem List - Problems (1) Acute on chronic systolic (congestive) heart failure Code(s): I50.23 - ACUTE ON CHRONIC SYSTOLIC (CONGESTIVE) HEART FAILURE (2) ICD (implantable cardioverter-defibrillator) in place Code(s): Z95.810 - PRESENCE OF AUTOMATIC (IMPLANTABLE) CARDIAC DEFIBRILLATOR (3) Hyponatremia Code(s): E87.1 - HYPO-OSMOLALITY AND HYPONATREMIA (4) Fall Code(s): W19.XXXA - UNSPECIFIED FALL, INITIAL ENCOUNTER Qualifiers: Encounter type: initial encounter Qualified Code(s): W19.XXXA - Unspecified fall, initial encounter Assessment/Plan Current Medications Generic Name Dose Route Start Last Admin Trade Name Freq PRN Reason Stop Dose Admin Acetaminophen 325 mg 08/14/18 12:47 08/14/18 17:57 Tylenol - PO 325 mg Q4H PRN Administration PAIN Acyclovir 400 mg 08/14/18 10:00 08/19/18 11:00 Zovirax - PO 400 mg BID KATHARINA Administration Brimonidine Tartrate 1 drop 08/14/18 10:00 08/19/18 10:56 Alphagan 0.2% - OU 1 drop BID KATHARINA Administration Cyclobenzaprine HCl 5 mg 08/14/18 22:00 08/19/18 10:55 Flexeril - PO 5 mg BID KATHARINA Administration Furosemide 60 mg 08/18/18 10:50 08/19/18 10:53 Lasix - PO 60 mg DAILY KATHARINA Administration Lidocaine 1 patch 08/15/18 10:00 08/19/18 10:52 Lidoderm Patch - TP 1 patch DAILY KATHARINA Administration Memantine 5 mg 08/15/18 22:00 08/19/18 10:54 Namenda - PO 5 mg BID KATHARINA Administration Metoprolol Tartrate 12.5 mg 08/17/18 18:45 08/19/18 10:54 Lopressor - PO 12.5 mg BID KATHARINA Administration Miscellaneous 1 each 08/15/18 22:00 08/18/18 21:09 Lidoderm Patch Removal MC 1 each DAILY@2200 KATHARINA Administration Rivaroxaban 20 mg 08/14/18 10:00 08/19/18 10:55 Xarelto - PO 20 mg DAILY KATHARINA Administration Spironolactone 12.5 mg 08/15/18 10:00 08/19/18 10:56 Aldactone - PO 12.5 mg DAILY KATHARINA Administration Timolol Maleate 1 drop 08/14/18 10:00 08/19/18 10:56 Timoptic 0.5% OU 1 drop BID KATHARINA Administration Tobramycin/Dexamethasone 1 drop 08/14/18 06:00 08/19/18 13:55 Tobradex Ophthalmic Suspension - OD 1 drop TID KATHARINA Administration Valsartan 320 mg 08/14/18 10:00 08/19/18 10:53 Diovan - PO 320 mg DAILY KATHARINA Administration Laboratory Tests 08/14/18 08/14/18 08/15/18 19:55 19:55 06:30 Sodium Serum Osmolality Cortisol AM Sample Urine Osmolality 353 Ur Random Sodium 87 JELENA M-Quinten Pending 08/15/18 08/15/18 06:30 06:30 Sodium 126 L Serum Osmolality 262 L Cortisol AM Sample 9.8 Urine Osmolality Ur Random Sodium JELENA M-Quinten Impression 1. hyponatremia 2. CHF 3. CAD 4. s/p fall 5. a-fib 6. HTN Plan - cont lasix - cont aldactone - monitor lytes - monitor sodium closely - pt is going to rehab today - explained to her son who is a doctor that she is stall at risk for fall - monitor bmp closely in rehab - restrict free water - encourage PO intake - will follow Dr Serrano
== END 2018-08-19 15:32 | DRG 644 ==
LOC: JER 14:25 → JERBED 18:20 → J6S 20:39
PROVIDERS: ADMIT Internal Medicine; ATTEND Internal Medicine
DX: E22.2 Syndrome of inappropriate secretion of antidiuretic hormone (principal); S12.100A Unspecified displaced fracture of second cervical vertebra, initial encounter for closed fracture; I50.22 Chronic systolic (congestive) heart failure; I42.9 Cardiomyopathy, unspecified; I11.0 Hypertensive heart disease with heart failure; L89.151 Pressure ulcer of sacral region, stage 1; L89.152 Pressure ulcer of sacral region, stage 2; L89.891 Pressure ulcer of other site, stage 1; F50.89 Other specified eating disorder; I25.10 Atherosclerotic heart disease of native coronary artery without angina pectoris; M48.00 Spinal stenosis, site unspecified; S00.81XA Abrasion of other part of head, initial encounter; S00.03XA Contusion of scalp, initial encounter; W07.XXXA Fall from chair, initial encounter; Y93.89 Activity, other specified; Y92.038 Other place in apartment as the place of occurrence of the external cause; Y99.8 Other external cause status; Z91.81 History of falling; Z79.01 Long term (current) use of anticoagulants; H40.9 Unspecified glaucoma; Z95.1 Presence of aortocoronary bypass graft; Z95.810 Presence of automatic (implantable) cardiac defibrillator; Z88.0 Allergy status to penicillin; Z96.643 Presence of artificial hip joint, bilateral; I34.0 Nonrheumatic mitral (valve) insufficiency; I36.1 Nonrheumatic tricuspid (valve) insufficiency
CPT/HCPCS: 36415; 70450-TC; 71045-TC-FY; 72125-TC; 72131-TC; 80048; 80053; 80061; 81003; 81015; 82085; 82436; 82533; 82550; 82570; 82607; 83721; 83735; 83874; 83880; 83930; 83935; 84100; 84133; 84155; 84165; 84300; 84443; 84484; 84550; 85025; 85027; 85610; 85651; 86850; 86900; 86901; 90715; 93005; 93010; 93306-TC; 95816; 97116-GP; 97161-GP; 99282-25; J7030